=== PATIENT | male | born 1965 | race Caucasian/White ===

== ENCOUNTER 2023-05-16 10:00 | Outpatient (OUT) | payer OTHER, SELFPAY | END 2023-05-16 10:01 | disposition home or self-care (01) | LOC: PST 05-25 18:27 | PROVIDERS: PCP Internal Medicine; Visit Provider Internal Medicine Hematology & Oncology | DX: Z01.818 Encounter for other preprocedural examination (principal) ==

== ENCOUNTER 2023-05-17 11:03 | Day surgery (SDC) | payer OTHER, SELFPAY ==
--- NOTE | 2023-05-17 | OP_ITS ---
OPERATION DATE: ??05/17/2023 PREOPERATIVE DIAGNOSIS:? Enlarging painful lipoma left lower back/flank. POSTOPERATIVE DIAGNOSIS:? Enlarging painful lipoma left lower back/flank. PROCEDURE:? Excisional biopsy of enlarging lipoma of the left lower back/flank area. SURGEON:? Toro Way M.D. ANESTHESIA:? Local with 0.5% Marcaine plain. ESTIMATED BLOOD LOSS:? Less than 3 mL. INDICATIONS AND CONSENT:? Patient is a 57-year-old male with history of enlarging painful lipoma of the left lower back/flank area.? Indications, risks, benefits, alternatives of proceeding with excisional biopsy under local anesthesia were explained extensively to the patient, including risks of bleeding, infection, scarring, pain, recurrence and need for further surgery.? All his questions were answered.? Informed consent was obtained. PROCEDURE:? Patient was brought to the operating room, placed in the right lateral decubitus position.? He was prepped and draped in the usual sterile fashion.? The area was anesthetized with 0.5% Marcaine, as well as the deeper structures.? Incision was made over the long axis of the lesion, which was approximately 2 cm in greatest diameter, and carried down through subcutaneous tissue using sharp dissection.? An approximately 2 cm lipoma was identified and freed up.? It was sent off to Pathology.? The wound was irrigated.? The subcutaneous tissues were re-approximated with interrupted 3-0 Monocryl suture.? The skin was closed with a running 4-0 subcuticular Monocryl suture and skin glue.? Sterile pressure dressing was applied.? Sponge and needle counts were correct x2 per nursing personnel.? Patient tolerated procedure well, was sent back to the recovery area, then discharged to home in good condition.? He is to take ibuprofen as needed for pain.? Follow up with me in 7-10 days for wound check.? He is to call sooner with any problems or questions.? CC:? Patient?s family physician BLUE
[2023-05-17 11:51] VITALS: BP 138/79; PULSE 56; RESP 18; O2SAT 97
[2023-05-17] MEDS: BUPIVACAINE HCL 0.5% PF 50 MG/10 ML VIAL INJ (11:58)
[2023-05-17 12:08] VITALS: BP 131/66; PULSE 77; RESP 18; O2SAT 96
== END 2023-05-17 12:18 | disposition home or self-care (01) ==
PROVIDERS: PCP Internal Medicine; Visit Provider Surgery
PROC: (CPT 11402; principal; 2023-05-17 11:20)
DX: D17.1 Benign lipomatous neoplasm of skin and subcutaneous tissue of trunk (principal); M54.9 Dorsalgia, unspecified; I10 Essential (primary) hypertension; K21.9 Gastro-esophageal reflux disease without esophagitis; G47.33 Obstructive sleep apnea (adult) (pediatric); I73.9 Peripheral vascular disease, unspecified
CPT/HCPCS: 11402; 12031; 88304

== ENCOUNTER 2023-10-24 09:35 | Observation (INO) | payer OTHER, SELFPAY ==
[2023-10-24] VITALS (20 sets, daily range): BP systolic 145–173; BP diastolic 73–87; PULSE 53–74; RESP 10–20; TEMP 36.6–36.9; O2SAT 93–99; BMI 43.5; BMI 37.2
--- NOTE | 2023-10-24 09:50 | ECG_ITS ---
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
--- NOTE | 2023-10-24 09:50 | XR_ITS ---
The [address] [address] Patient Name: SAMUEL BLANCHARD MRN: [id number] date: 1965 Sex: M Assigned Patient Location: ER Current Patient Location: ER Accession/Order Number: [id number] Exam Date: 10/24/2023 09:51 Report Date: 10/24/2023 10:19 At the request of: NICOLAS ELMORE Procedure: XR chest 1V EXAM: XR chest 1V HISTORY: CP COMPARISON: Chest study dated 02/13/2019 TECHNIQUE: AP view of the chest was obtained with portable technique at 10:00 AM. FINDINGS: Heart and mediastinal contours are unremarkable in appearance. No acute infiltrate or consolidations are seen. No obvious pneumothorax. Mild degenerative changes in the dorsal spine with slight convexity to the right. XR/XR chest 1V IMPRESSION: No acute process seen in the chest. Electronically authenticated by: JERRI TAN Date: 10/24/2023 10:19
--- NOTE | 2023-10-24 09:50 | ED.CHESTPAI1 ---
HPI - Chest Pain General Chief Complaint: Chest Pain Stated Complaint: CHEST PAIN Time Seen by Provider: 10/24/23 09:43 Source: patient Mode of arrival: walk-in Limitations: no limitations History of Present Illness HPI narrative: 58-year-old male presents for chest pain. He's been having it intermittently for the past four days and it last 45-60 seconds at a time. It's been happening at work. He doesn't feel short of breath. Fatigue recently but no cough or fever or shortness of breath or injury. He states when he gets that it feels like a stick is moving across his chest. Related Data Home Medications Medication Instructions Recorded Confirmed amlodipine 10 mg tablet 10 mg PO DAILY 05/15/23 05/15/23 carvedilol 12.5 mg tablet 12.5 mg PO BID 05/15/23 05/15/23 losartan 50 mg-hydrochlorothiazide 1 tab PO DAILY 05/15/23 05/15/23 12.5 mg tablet potassium chloride 10 mEq 10 meq PO DAILY 05/15/23 05/15/23 tablet,extended release Allergies Allergy/AdvReac Type Severity Reaction Status Date / Time No Known Drug Allergies Allergy Verified 05/15/23 13:39 Review of Systems ROS Narrative A ten point review of systems is negative except as noted above. [facility] Medical History (Updated 10/24/23 @ 12:07 by Alejandro Morse MD) Inflammatory polyarthropathy ?M06.4 - Inflammatory polyarthropathy (ICD-10) Gastric hemorrhage due to chronic superficial gastritis ?K29.31 - Chronic superficial gastritis with bleeding (ICD-10) Obstructive sleep apnea ?G47.33 - Obstructive sleep apnea (adult) (pediatric) (ICD-10) Peripheral venous insufficiency ?I87.2 - Venous insufficiency (chronic) (peripheral) (ICD-10) GERD (gastroesophageal reflux disease) ?K21.9 - Gastro-esophageal reflux disease without esophagitis (ICD-10) Erosive esophagitis ?K22.10 - Ulcer of esophagus without bleeding (ICD-10) Lipoma of back ?D17.1 - Benign lipomatous neoplasm of skin and subcutaneous tissue of trunk (ICD-10) Hypertension ?I10 - Essential (primary) hypertension (ICD-10) Hypokalemia ?E87.6 - Hypokalemia (ICD-10) History of anemia ?Z86.2 - Personal history of diseases of the blood and blood-forming organs and certain disorders involving the immune mechanism (ICD-10) Surgical History (Updated 05/15/23 @ 13:54 by Swapna Ansari) History of arthroscopic knee surgery ?Z98.890 - Other specified postprocedural states (ICD-10) History of foot surgery ?Z98.890 - Other specified postprocedural states (ICD-10) Status post excision of lipoma ?Z98.890 - Other specified postprocedural states (ICD-10) ?Z86.018 - Personal history of other benign neoplasm (ICD-10) History of nasal septoplasty ?Z98.890 - Other specified postprocedural states (ICD-10) Hx of colonoscopy ?Z98.890 - Other specified postprocedural states (ICD-10) History of esophagogastroduodenoscopy ?Z98.890 - Other specified postprocedural states (ICD-10) Family History (Updated 05/15/23 @ 13:44 by Swapna Ansari) Other Asthma Family history of diabetes mellitus Family history of hypertension Social History (Updated 05/17/23 @ 11:21 by Swapna Rodriguez) Within the past year, how often did you have a drink containing alcohol: 2-4 times a month Smoking status: Never smoker Non-prescribed substance use: denies use Previous occupational history: DRAPERY INSTALLER AT [employer] Highest level of school completed/degree received: some college, no degree Exam Narrative Exam Narrative: Nurses note and vital signs reviewed and patient is not hypoxic. General: The patient appears well and in no apparent distress. Patient is resting comfortably on cart. Skin: Warm, dry, no pallor noted. There is no rash noted. Head: Normocephalic, atraumatic Eye: Normal conjunctiva, no drainage Ears, Nose, Mouth, and Throat: oral mucosa is moist. Nares patent. Cardiovascular: Regular Rate and Rhythm Respiratory: Patient is in no distress, no accessory muscle use, lungs are clear to auscultation, no wheezing, rales or rhonchi Back: non-tender GI: soft and nontender Musculoskeletal: The patient has no evidence of calf tenderness, no pitting edema, symmetrical pulses noted bilaterally Neurological: A&O, normal speech Psychiatric: Cooperative Constitutional Vital Signs, click to edit/add: Last Vital Signs Temp 97.9 F 10/24/23 09:38 Pulse 55 L 10/24/23 10:30 Resp 14 10/24/23 10:30 BP 173/84 H 10/24/23 09:40 Pulse Ox 95 10/24/23 10:30 Course Vital Signs Vital signs: Vital Signs Temperature 97.9 F 10/24/23 09:38 Pulse Rate 59 L 10/24/23 09:38 Respiratory Rate 18 10/24/23 09:38 Blood Pressure 173/84 H 10/24/23 09:38 Pulse Oximetry 99 10/24/23 09:38 Temperature 97.9 F 10/24/23 09:38 Pulse Rate 55 L 10/24/23 10:30 Respiratory Rate 14 10/24/23 10:30 Blood Pressure 173/84 H 10/24/23 09:40 Pulse Oximetry 95 10/24/23 10:30 MDM - Chest Pain MDM Narrative Medical decision making narrative: two troponins are normal, essentially unchanged. He has slight ST depression laterally. His symptoms are concerning and he'll be admitted for observation. Findings are discussed with the patient Differential Diagnosis Differential diagnosis: Likely pneumothorax, unstable angina pectoris, atypical chest pain, st elevation myocardial infarction, costochondritis and chest pain Lab Data Attestation: I reviewed the patient's lab results. Labs: Lab Results 10/24/23 10/24/23 Range/Units 09:43 10:48 WBC 6.3 (4.0-11.0) 10^3/uL RBC 4.71 (4.70-6.10) 10^6/uL Hgb 13.0 L (14.0-18.0) g/dL Hct 39.2 L (42.0-54.0) % MCV 83.2 (80.0-94.0) fL MCH 27.6 (25.9-34.0) pg MCHC 33.2 (29.9-35.2) g/dL RDW 13.2 (11.0-15.0) % Plt Count 143 L (150-450) 10^3/uL MPV 9.5 (9.5-13.5) fL Neut % (Auto) 65.3 (43.0-75.0) % Lymph % (Auto) 22.1 (20.5-60.0) % Harvey % (Auto) 7.0 (1.7-12.0) % Eos % (Auto) 4.1 (0.9-7.0) % Baso % (Auto) 0.6 (0.2-2.0) % Neut # (Auto) 4.1 (1.4-6.5) 10^3/uL Lymph # (Auto) 1.4 (1.2-3.8) 10^3/uL Harvey # (Auto) 0.4 (0.3-0.8) 10^3/uL Eos # (Auto) 0.3 (0.0-0.7) 10^3/uL Baso # (Auto) 0.0 (0.0-0.1) 10^3/uL Abs Immat Gran (auto) 0.06 H (0.00-0.03) 10^3/uL Imm/Tot Granulo (auto) 0.9 H (0.0-0.5) % Sodium 138 (136-145) mmol/L Potassium 3.6 (3.5-5.1) mmol/L Chloride 102 (98-107) mmol/L Carbon Dioxide 28.6 (21.0-32.0) mmol/L Anion Gap 11.0 BUN 12.0 (7.0-18.0) mg/dL Creatinine 0.89 (0.70-1.30) mg/dL Est GFR ( Amer) >60 (>=60) Est GFR (Non-Af Amer) >60 (>=60) BUN/Creatinine Ratio 13.5 Glucose 117 H (74-106) mg/dL Calcium 8.4 L (8.5-10.1) mg/dL Troponin I High Sens 11.2 13.1 (4.0-76.1) pg/mL Imaging Data Chest x-ray: Radiologist's impression: Procedure: XR chest 1V EXAM: XR chest 1V HISTORY: CP COMPARISON: Chest study dated 02/13/2019 TECHNIQUE: AP view of the chest was obtained with portable technique at 10:00 AM. FINDINGS: Heart and mediastinal contours are unremarkable in appearance. No acute infiltrate or consolidations are seen. No obvious pneumothorax. Mild degenerative changes in the dorsal spine with slight convexity to the right. IMPRESSION: No acute process seen in the chest. Electronically authenticated by: JERRI TAN Date: 10/24/2023 10:19 ECG Data Attestation: I personally reviewed and interpreted this ECG as follows: (EKG on my interpretation shows normal sinus rhythm with a rate of [address] depression laterally.) Heart Score History: Highly Suspicious ECG: NS Repolarization Age: >45-<65 years Risk Factors: 1 or 2 Risk Factors Troponin: <Normal Limit Total Heart Score Recommendations & Risks:: 5 Discharge Plan Discharge Chief Complaint: Chest Pain Clinical Impression: Chest pain Patient Disposition: Admitted as Observation Time of Disposition Decision: 12:07 Condition: Good Prescriptions / Home Meds: No Action amlodipine 10 mg tablet 10 mg PO DAILY carvedilol 12.5 mg tablet 12.5 mg PO BID Rx Instructions: must administer with a meal/food losartan-hydrochlorothiazide 50-12.5 mg tablet 1 tab PO DAILY potassium chloride 10 mEq tablet extended release 10 meq PO DAILY Referrals: Pascual Ordaz DO [Primary Care Provider] - 1 week
[2023-10-24 09:58] LABS: Basophils Percent Auto 0.6 % (0.2-2.0); Eosinophils Absolute Auto 0.3 10^3/uL (0.0-0.7); Eosinophils Percent Auto 4.1 % (0.9-7.0); Hematocrit 39.2 % (42.0-54.0); Immature Granulocytes Abs Auto 0.06 10^3/uL (0.00-0.03); Immature Granulocytes Pct Auto 0.9 % (0.0-0.5); Lymphocytes Absolute Auto 1.4 10^3/uL (1.2-3.8); Lymphocytes Percent Auto 22.1 % (20.5-60.0); Mean Corpuscular HGB Conc 33.2 g/dL (29.9-35.2); Mean Corpuscular Hemoglobin 27.6 pg (25.9-34.0); Mean Corpuscular Volume 83.2 fL (80.0-94.0); Mean Platelet Volume 9.5 fL (9.5-13.5); Monocytes Absolute Auto 0.4 10^3/uL (0.3-0.8); Neutrophils Absolute Auto 4.1 10^3/uL (1.4-6.5); Neutrophils Percent Auto 65.3 % (43.0-75.0); Platelet Count 143 10^3/uL (150-450); Red Blood Count 4.71 10^6/uL (4.70-6.10); Red Cell Distribution Width 13.2 % (11.0-15.0); White Blood Count 6.3 10^3/uL (4.0-11.0)
[2023-10-24] MEDS: ASPIRIN 81 MG TAB.CHEW 324 MG PO (10:10)
[2023-10-24 10:12] LABS: BUN Creatinine Ratio 13.5; Calcium 8.4 mg/dL (8.5-10.1); Carbon Dioxide 28.6 mmol/L (21.0-32.0); Chloride 102 mmol/L (98-107); Estimated GFR (African America >60 (>=60); Estimated GFR (Non-African Ame >60 (>=60); Glucose 117 mg/dL (74-106); Potassium 3.6 mmol/L (3.5-5.1); Sodium 138 mmol/L (136-145); Troponin I High Sensitivity 11.2 pg/mL (4.0-76.1)
[2023-10-24] MEDS: ASPIRIN 81 MG TAB.CHEW PO (10:21)
[2023-10-24 11:11] LABS: Troponin I High Sensitivity 13.1 pg/mL (4.0-76.1)
--- NOTE | 2023-10-24 13:00 | US_ITS ---
The [address] [address] Patient Name: SAMUEL BLANCHARD MRN: [id number] date: 1965 Sex: M Assigned Patient Location: ICU Current Patient Location: ICU Accession/Order Number: [id number] Exam Date: 10/24/2023 13:05 Report Date: 10/24/2023 13:50 At the request of: FRANC MARMOLEJO Procedure: US right upper quadrant EXAM: US right upper quadrant HISTORY: Abdominal pain COMPARISON: None TECHNIQUE: Ultrasound study of the right upper quadrant of the abdomen was performed. FINDINGS: In the gallbladder no evidence of gallstones. Gallbladder wall is borderline normal in size measuring 0.30 cm in thickness, of doubtful acute significance. No obvious pericholecystic fluid. Common bile duct measures 0.23 cm in diameter which is within normal limits. Liver appears grossly unremarkable without obvious mass or intrahepatic ductal dilatation. Limited views of the pancreas fail demonstrate obvious focal abnormality. Right kidney measures approximately 12.1 x 5.1 x 5.8 cm in longitudinal, transverse and AP dimensions. No obvious solid or cystic mass. No obvious calculus. No evidence of an acute process to suggest obstructive uropathy. Renal cortex is unremarkable measuring 1.5 cm in thickness. US/US right upper quadrant IMPRESSION: Grossly unremarkable ultrasound study of the right upper quadrant of the abdomen. Electronically authenticated by: JERRI TAN Date: 10/24/2023 13:50
--- NOTE | 2023-10-24 13:07 | CA_ITS ---
Patient Name: SAMUEL BLANCHARD MR#: [id number] : 1965 Exam Date: 10/24/2023 Ordering Doctor: DR Andrei Dumont . ECHOCARDIOGRAM REPORT PROCEDURE: CA ECHO DOPPLER COMPLETE INDICATIONS: Dyspnea, hypertension, obstructive sleep apnea COMPARISON: None. DESCRIPTION: COMPLETE ECHOCARDIOGRAM Real-time transthoracic echocardiography with 2D, M-mode, spectral and color flow Doppler performed. QUALITY: Technical quality was good. LEFT VENTRICLE: Normal chamber size. Moderate concentric left ventricular hypertrophy. LV EF: Normal left ventricular ejection fraction, (>55%). DIASTOLIC: Diastolic function is indeterminate. ATRIAL SEPTUM: LEFT ATRIUM: Normal chamber size. RIGHT ATRIUM: Normal chamber size. RIGHT VENTRICLE: Normal chamber size. Normal right ventricular systolic function. TRICUSPID VALVE: Normal mobility and thickness. No stenosis with trivial regurgitation. No evidence of pulmonary hypertension. RVSP 32 mmHg MITRAL VALVE: Normal mobility and thickness. No evidence of mitral valve stenosis. There is no mitral annular calcification. No mitral regurgitation. AORTIC VALVE: Normal trileaflet appearance. No visible sclerosis. Normal leaflet mobility. No evidence of aortic valve stenosis. No aortic regurgitation. AORTIC ROOT: Mildly to moderately dilated measuring 4.2 cm. Mildly to moderately dilated ascending aorta measuring 4.1 cm. PULMONIC VALVE: Normal thickness and mobility. No stenosis. Trivial regurgitation. PERICARDIUM: No evidence of pericardial effusion. IVC: Collapses with inspirations. IVC is dilated (2.6 cm) PLEURA: CONCLUSION: 1. Moderate concentric left ventricular hypertrophy with normal systolic function. LVEF is 55 to 60%. 2. Normal right ventricular size and systolic function. 3. No significant valvular dysfunction. 4. Normal right-sided pressures. 5. Mildly to moderately dilated aortic root [4.2 cm], and ascending aorta [4.1 cm]. Adult Echocardiography Procedure Report Left Ventricle LVEDD (3.7 - 5.6 cm): 5.43 cm LVESD (2.2 - 4.0 cm): 3.33 cm LVIVS thickness (0.6 - 1.2 cm): 1.64 cm LVPW thickness (0.5 - 1.0 cm): 1.45 cm LVOT Max Gradient: 5 mm[Hg] Peak Velocity (LVOT): 116.00 cm/s LVOT Diameter 2.90 cm Left Ventricular Ejection Fraction: 55-60 % Left Atrium LA Volume Index (2D A2C): 23932 mm3 Left Atrium Systolic Dimension: 4.90 cm Mitral Valve MV E to A Ratio: 1.20 Mitral Valve A-Wave Peak Velocity: 74.50 cm/s Mitral Valve E-Wave Peak Velocity: 85.90 cm/s Cardiovascular Orifice Area: 2.42 cm2 Right Ventricle Aorta AO Root Diam: 4.20 cm Aortic Valve AoV Area (Peak Kwadwo): 5.72 cm2 Peak Velocity(Antegrade Flow): 134.00 cm/s Peak Gradient(Antegrade Flow): 7 mm[Hg] Tricuspid Valve Peak Velocity (Regurgitant Flow): 246.00 cm/s Peak Velocity: 58.70 cm/s Pulmonic Valve Peak Velocity: 72.10 cm/s, 99.00 cm/s Peak Gradient: 3 mm[Hg] Right Atrium Dictated by: Rick Deleon M.D. on 10/25/2023 at 11:13 Approved by: Rick Deleon M.D. on 10/25/2023 at 11:18
[2023-10-24 14:13] LABS: Alanine Aminotransferase 36 U/L (16-63); Albumin Level 3.6 g/dL (3.4-5.0); Alkaline Phosphatase 66 U/L (46-116); Aspartate Amino Transferase 23 U/L (15-37); Bilirubin Direct 0.2 mg/dL (0.0-0.2); Bilirubin Total 0.6 mg/dL (0.2-1.0); Globulin 3.6 g/dL; Total Protein 7.2 g/dL (6.4-8.2)
--- NOTE | 2023-10-24 14:25 | P.HP_ITS ---
H&P: HPI History of Present Illness Chief complaint: CHEST PAIN Narrative: Patient presented to the emergency room with increasing episodes of chest tightness, left and right shoulder pain as well. Some dyspnea when he has the symptoms. Patient risk factor of obesity, patient admitted to ICU for intensive cardiac monitoring based on symptoms of increasing chest tightness possible unstable angina Review of Systems ROS Status of ROS 10 or more systems reviewed and unremark able except as noted in history and below [facility] Medical History (Updated 10/24/23 @ 12:07 by Alejandro Morse MD) Inflammatory polyarthropathy ?M06.4 - Inflammatory polyarthropathy (ICD-10) Gastric hemorrhage due to chronic superficial gastritis ?K29.31 - Chronic superficial gastritis with bleeding (ICD-10) Obstructive sleep apnea ?G47.33 - Obstructive sleep apnea (adult) (pediatric) (ICD-10) Peripheral venous insufficiency ?I87.2 - Venous insufficiency (chronic) (peripheral) (ICD-10) GERD (gastroesophageal reflux disease) ?K21.9 - Gastro-esophageal reflux disease without esophagitis (ICD-10) Erosive esophagitis ?K22.10 - Ulcer of esophagus without bleeding (ICD-10) Lipoma of back ?D17.1 - Benign lipomatous neoplasm of skin and subcutaneous tissue of trunk (ICD-10) Hypertension ?I10 - Essential (primary) hypertension (ICD-10) Hypokalemia ?E87.6 - Hypokalemia (ICD-10) History of anemia ?Z86.2 - Personal history of diseases of the blood and blood-forming organs and certain disorders involving the immune mechanism (ICD-10) Surgical History (Updated 05/15/23 @ 13:54 by Swapna Ansari) History of arthroscopic knee surgery ?Z98.890 - Other specified postprocedural states (ICD-10) History of foot surgery ?Z98.890 - Other specified postprocedural states (ICD-10) Status post excision of lipoma ?Z98.890 - Other specified postprocedural states (ICD-10) ?Z86.018 - Personal history of other benign neoplasm (ICD-10) History of nasal septoplasty ?Z98.890 - Other specified postprocedural states (ICD-10) Hx of colonoscopy ?Z98.890 - Other specified postprocedural states (ICD-10) History of esophagogastroduodenoscopy ?Z98.890 - Other specified postprocedural states (ICD-10) Family History (Updated 10/24/23 @ 13:34 by Deepthi Eddy) Other Family history of COPD (chronic obstructive pulmonary disease) Family history of cancer Family history of diabetes mellitus Family history of hypertension Family history of stroke Social History (Updated 05/17/23 @ 11:21 by Swapna Rodriguez) Within the past year, how often did you have a drink containing alcohol: 2-4 times a month Smoking status: Never smoker Non-prescribed substance use: denies use Previous occupational history: TECHNICAL HEALTHCARE CONSULTANT AT [employer] Highest level of school completed/degree received: some college, no degree Meds Home Medications and Allergies Home Medications Medication Instructions Recorded Confirmed Type amlodipine 10 mg tablet 10 mg PO DAILY 05/15/23 10/24/23 History losartan 50 mg-hydrochlorothiazide 1 tab PO DAILY 05/15/23 10/24/23 History 12.5 mg tablet potassium chloride 10 mEq 10 meq PO DAILY 05/15/23 10/24/23 History tablet,extended release aspirin 81 mg tablet,delayed 81 mg PO QD #30 tabs 10/25/23 Rx release Allergies Allergy/AdvReac Type Severity Reaction Status Date / Time No Known Drug Allergies Allergy Verified 05/15/23 13:39 Exam Constitutional Vital Signs, click to edit/add: Last Vital Signs Temp 97.5 F L 10/25/23 04:48 Pulse 59 L 10/25/23 04:48 Resp 12 10/25/23 04:48 BP 149/88 H 10/25/23 04:48 Pulse Ox 96 10/25/23 04:48 O2 Del Method Room Air 10/25/23 04:48 Documenting provider has reviewed patient's vital signs: yes Common normals: no apparent distress Chest Common normals: inspection of chest normal and palpation of chest normal Respiratory Common normals: normal respiratory effort and no retractions Cardio Common normals: regular rate, regular rhythm and no murmurs GI Common normals: Normal to inspection, nondistended, normoactive bowel sounds present Back & Pelvis Common normals: thoracic and lumbar spine normal to inspection Results Labs Labs: Short CBC 10/24/23 10/25/23 Range/Units 09:43 05:05 WBC 6.3 7.3 (4.0-11.0) 10^3/uL Hgb 13.0 L 12.8 L (14.0-18.0) g/dL Hct 39.2 L 38.9 L (42.0-54.0) % Plt Count 143 L 145 L (150-450) 10^3/uL [facility] 10/24/23 09:43 Sodium 138 Potassium 3.6 Chloride 102 Carbon Dioxide 28.6 BUN 12.0 Creatinine 0.89 Glucose 117 H Calcium 8.4 L Liver Function 10/24/23 Range/Units 13:32 Total Bilirubin 0.6 (0.2-1.0) mg/dL Direct Bilirubin 0.2 (0.0-0.2) mg/dL AST 23 (15-37) U/L ALT 36 (16-63) U/L Alkaline Phosphatase 66 (46-116) U/L Albumin 3.6 (3.4-5.0) g/dL Assessment and Plan Assessment and Plan (1) Chest pain: Plan Chest pain left-sided into the left arm, pressure type, some dyspnea-check echo, cardiac markers, monitor blood pressure closely, start baby aspirin Hypertension-continue with home medications *Patient is observation-cycle enzymes, check echo, possible discharge in a.m. if stable
[2023-10-24 16:49] LABS: Troponin I High Sensitivity 14.4 pg/mL (4.0-76.1)
[2023-10-24] MEDS: AMLODIPINE BESYLATE 5 MG TABLET 10 MG PO (16:55)
[2023-10-24] MEDS: POTASSIUM CHLORIDE 10 MEQ ER TABLET PO (16:56)
[2023-10-24] MEDS: PANTOPRAZOLE SODIUM 40 MG VIAL IV (16:57)
[2023-10-25] VITALS (52 sets, daily range): BP systolic 146–149; BP diastolic 80–88; PULSE 46–127; RESP 0–36; TEMP 36.4–36.6; O2SAT 93–96
[2023-10-25 05:16] LABS: Basophils Absolute Auto 0.1 10^3/uL (0.0-0.1); Basophils Percent Auto 0.8 % (0.2-2.0); Eosinophils Absolute Auto 0.3 10^3/uL (0.0-0.7); Eosinophils Percent Auto 3.8 % (0.9-7.0); Hematocrit 38.9 % (42.0-54.0); Hemoglobin 12.8 g/dL (14.0-18.0); Immature Granulocytes Abs Auto 0.06 10^3/uL (0.00-0.03); Immature Granulocytes Pct Auto 0.8 % (0.0-0.5); Lymphocytes Absolute Auto 1.5 10^3/uL (1.2-3.8); Lymphocytes Percent Auto 20.1 % (20.5-60.0); Mean Corpuscular HGB Conc 32.9 g/dL (29.9-35.2); Mean Corpuscular Hemoglobin 27.2 pg (25.9-34.0); Mean Corpuscular Volume 82.8 fL (80.0-94.0); Mean Platelet Volume 9.2 fL (9.5-13.5); Monocytes Absolute Auto 0.5 10^3/uL (0.3-0.8); Monocytes Percent Auto 6.7 % (1.7-12.0); Neutrophils Absolute Auto 4.9 10^3/uL (1.4-6.5); Neutrophils Percent Auto 67.8 % (43.0-75.0); Platelet Count 145 10^3/uL (150-450); Red Cell Distribution Width 13.2 % (11.0-15.0); White Blood Count 7.3 10^3/uL (4.0-11.0)
[2023-10-25 05:33] LABS: Alanine Aminotransferase 45 U/L (16-63); Albumin Globulin Ratio 0.9; Albumin Level 3.3 g/dL (3.4-5.0); Alkaline Phosphatase 60 U/L (46-116); Anion Gap 10.5; Aspartate Amino Transferase 24 U/L (15-37); BUN Creatinine Ratio 13.2; Bilirubin Total 0.7 mg/dL (0.2-1.0); Carbon Dioxide 27.2 mmol/L (21.0-32.0); Chloride 103 mmol/L (98-107); Estimated GFR (African America >60 (>=60); Estimated GFR (Non-African Ame >60 (>=60); Globulin 3.7 g/dL; Glucose 116 mg/dL (74-106); Potassium 3.7 mmol/L (3.5-5.1); Sodium 137 mmol/L (136-145)
--- NOTE | 2023-10-25 07:37 | P.DS_ITS ---
DS: Providers Provider Date of admission: 10/24/23 12:43 Primary care physician: Pascual Ordaz, DS: Diagnosis Discharge Diagnosis (1) Chest pain: Plan Chest pain- Hypertension DS: Summary Hospital Course Hospital Course: Patient mated to the ICU with concerning story for accelerating and unstable angina, patient no further episodes of chest pain while he was admitted here, cardiac markers were negative, echocardiogram preliminary report with an excellent ejection fraction, started patient on a baby aspirin, if ambulating well this morning without chest pain be discharged home in improving condition. Medications see list. Follow-up with his PCP for any further cardiac workup as deemed necessary Time Spent with Patient Time attestation: Total time spent providing and/or coordinating discharge services: Exam Constitutional Vital Signs, click to edit/add: Last Vital Signs Temp 97.5 F L 10/25/23 04:48 Pulse 46 L 10/25/23 05:59 Resp 12 10/25/23 04:48 BP 149/88 H 10/25/23 04:48 Pulse Ox 96 10/25/23 04:48 O2 Del Method Room Air 10/25/23 04:48 Documenting provider has reviewed patient's vital signs: yes Common normals: no apparent distress Chest Common normals: inspection of chest normal and palpation of chest normal Respiratory Common normals: normal respiratory effort and no retractions Cardio Common normals: regular rate, regular rhythm and no murmurs GI Common normals: Normal to inspection, nondistended, normoactive bowel sounds present Back & Pelvis Common normals: thoracic and lumbar spine normal to inspection DS: Data Data Completed and Pending Labs on day of discharge: Labs from last 24 hours 10/25/23 10/24/23 10/24/23 05:05 16:27 13:32 WBC 7.3 RBC 4.70 Hgb 12.8 L Hct 38.9 L MCV 82.8 MCH 27.2 MCHC 32.9 RDW 13.2 Plt Count 145 L MPV 9.2 L Neut % (Auto) 67.8 Lymph % (Auto) 20.1 L [place] % (Auto) 6.7 Eos % (Auto) 3.8 Baso % (Auto) 0.8 Neut # (Auto) 4.9 Lymph # (Auto) 1.5 [place] # (Auto) 0.5 Eos # (Auto) 0.3 Baso # (Auto) 0.1 Abs Immat Gran (auto) 0.06 H Imm/Tot Granulo (auto) 0.8 H Sodium 137 Potassium 3.7 Chloride 103 Carbon Dioxide 27.2 Anion Gap 10.5 BUN 12.0 Creatinine 0.91 Est GFR ( Amer) >60 Est GFR (Non-Af Amer) >60 BUN/Creatinine Ratio 13.2 Glucose 116 H Calcium 9.0 Magnesium 2.0 Total Bilirubin 0.7 0.6 Direct Bilirubin 0.2 AST 24 23 ALT 45 36 Alkaline Phosphatase 60 66 Troponin I High Sens 14.4 13.0 NT-Pro-B Natriuret Pep 30.0 Total Protein 7.0 7.2 Albumin 3.3 L 3.6 Globulin 3.7 3.6 Albumin/Globulin Ratio 0.9 1.0 10/24/23 10/24/23 10:48 09:43 WBC 6.3 RBC 4.71 Hgb 13.0 L Hct 39.2 L MCV 83.2 MCH 27.6 MCHC 33.2 RDW 13.2 Plt Count 143 L MPV 9.5 Neut % (Auto) 65.3 Lymph % (Auto) 22.1 [place] % (Auto) 7.0 Eos % (Auto) 4.1 Baso % (Auto) 0.6 Neut # (Auto) 4.1 Lymph # (Auto) 1.4 [place] # (Auto) 0.4 Eos # (Auto) 0.3 Baso # (Auto) 0.0 Abs Immat Gran (auto) 0.06 H Imm/Tot Granulo (auto) 0.9 H Sodium 138 Potassium 3.6 Chloride 102 Carbon Dioxide 28.6 Anion Gap 11.0 BUN 12.0 Creatinine 0.89 Est GFR ( Amer) >60 Est GFR (Non-Af Amer) >60 BUN/Creatinine Ratio 13.5 Glucose 117 H Calcium 8.4 L Magnesium Total Bilirubin Direct Bilirubin AST ALT Alkaline Phosphatase Troponin I High Sens 13.1 11.2 NT-Pro-B Natriuret Pep Total Protein Albumin Globulin Albumin/Globulin Ratio Discharge Plan Discharge Disposition: Home, Self-Care Condition: Good Discharge Medications: New aspirin 81 mg Tablet,Delayed Release (Dr/Ec) 81 mg PO QD Qty: 30 11RF Continued amlodipine 10 mg tablet 10 mg PO DAILY losartan-hydrochlorothiazide 50-12.5 mg tablet 1 tab PO DAILY potassium chloride 10 mEq tablet extended release 10 meq PO DAILY Activity: increase activity as tolerated Diet: advance to your usual diet Print Language: Angolan Patient Instructions: Chest Pain (DC) Forms: Portal Instructions Follow Up Appointments: One week with PCP Dr. Betty Ordaz [phone]; 11/02/2023 at 2:30 pm
--- NOTE | 2023-10-25 08:04 | CM.NOTE ---
Rounds made with Dr. Dumont pt will discharge today.
--- NOTE | 2023-10-25 08:53 | PC.NURSE ---
Patient was discharged from room 276 with no distress or s/s of chest pain at this time. Follow up appointment made with Dr. Betty Ordaz's office 11/02/2023 at 1430. Patient and this rn went over his discharge instruction. Patient had no further questions. Telemetry and IV were removed; IV catheter was intact. Patient was walked to his car in stable condition.
== END 2023-10-25 08:40 | disposition home or self-care (01) ==
LOC: ER 12:07 → ICU 12:46
PROVIDERS: Admitting Provider Family Medicine; Emergency Provider Emergency Medicine; PCP Internal Medicine; Visit Provider Family Medicine
DX: R07.9 Chest pain, unspecified (principal); I10 Essential (primary) hypertension; R06.00 Dyspnea, unspecified; M06.4 Inflammatory polyarthropathy; G47.33 Obstructive sleep apnea (adult) (pediatric); I87.2 Venous insufficiency (chronic) (peripheral); K21.9 Gastro-esophageal reflux disease without esophagitis; Z86.2 Personal history of diseases of the blood and blood-forming organs and certain disorders involving the immune mechanism; Z98.890 Other specified postprocedural states; Z79.899 Other long term (current) drug therapy
CPT/HCPCS: 36415; 71045; 76705; 80048; 80053; 80076; 83735; 83880; 84484; 85025; 93005; 93306; 94761; 96374; 99285; G0378

== ENCOUNTER 2023-12-02 08:15 | Outpatient (OUT) | payer OTHER, SELFPAY ==
--- OUTSIDE RECORDS SUMMARY | 2023-12-02 08:21 | XMS_ITS | CCD ---
Author Name Unknown Address [address] [place] [address] Organization [facility] Care Team Providers Care Attending Pathologist Name Role Phone Pascual Ordaz Primary Care Provider [phone] Alexander Robison Attending Provider Melissa Richter Unavailable LAMBERTO JOHNSON Admitting Unavailable ELIZABETH, LAMBERTO Attending Unavailable ORLIN, DR STEVENSON Primary Care Unavailable JINNY, DR ALEXANDER Muir Consulting Unavailable ELIZABETH, LAMBERTO Consulting Unavailable BALL, DR STEVENSON Admitting Unavailable BALL, DR STEVENSON Attending Unavailable BALL, DR STEVENSON Primary Care Unavailable BALL, DR STEVENSON Consulting Unavailable BALL, DR STEVENSON Admitting Unavailable BALL, DR STEVENSON Attending Unavailable BALL, DR STEVENSON Primary Care Unavailable BALL, DR STEVENSON Consulting Unavailable BALL, DR STEVENSON Admitting Unavailable BALL, DR STEVENSON Attending Unavailable BALL, DR STEVENSON Primary Care Unavailable ELIZABETH, LAMBERTO Admitting Unavailable ELIZABETH, LAMBERTO Attending Unavailable BALL, DR STEVENSON Primary Care Unavailable WEST, DR ALEXANDER Muir Consulting Unavailable ELIZABETH, LAMBERTO Consulting Unavailable BALL, DR STEVENSON Admitting Unavailable BALL, DR STEVENSON Attending Unavailable BALL, DR STEVENSON Primary Care Unavailable BALL, DR STEVENSON Consulting Unavailable BALL, DR STEVENSON Admitting Unavailable BALL, DR STEVENSON Attending Unavailable BALL, DR STEVENSON Primary Care Unavailable BALL, DR STEVENSON Admitting Unavailable BALL, DR STEVENSON Attending Unavailable BALL, DR STEVENSON Primary Care Unavailable BALL, DR STEVENSON Consulting Unavailable Orlin, Pascual Unavailable PASCUAL ORDAZ Primary Care Physician Toro DODGE Attending Unavailable NILL, Toro Kirby Attending Unavailable NILL, Toro Kirby Attending Unavailable NILL, Toro Kirby Attending Unavailable BALL, PASCUAL Referring Unavailable Unavailable Unavailable Unavailable Allergies Allergy Classification Reported Allergen(s) Allergy Type Date of Onset Reaction(s) Facility (1 source) No Known Medication Allergies; Translations: [No Known Medication Allergies] Propensity to adverse reactions (disorder) [facility] Repository Medications Current Medications Medication Drug Class(es) Dates Sig (Normalized) Sig (Original) amLODIPine 10 mg oral tablet (11 sources) Dihydropyridine Calcium Channel Avinash Start: 04-12-2019 take 1 tablet by mouth once daily amLODIPine 10 mg Tab 10 mg = 1 tab(s), Oral, Daily, Oral, Refills(s) 0 Start Date: 03/24/23 Status: Ordered amLODIPine Besyl ate Active aspirin 81 mg delayed release oral tablet (1 source) Platelet Aggregation Inhibitor, Nonsteroidal Anti-inflammatory Drug take 1 tablet by mouth every twenty-four hours Aspirin 81 MG 1 tablet Orally Once a day Active carvedilol 12.5 mg oral tablet (3 sources) alpha-Adrenergic Avinash, beta-Adrenergic Avinash Start: take 1 tablet by mouth twice daily carvedilol 12.5 mg Tab 12.5 mg = 1 tab(s), Oral, BID, Refills(s) 0 Start Date: 03/24/23 Status: Ordered Start: 04-12-2019 take 12.5 mg by mout h twice daily Carvedilol Active 12.5 MG PO Twice daily April 12, 2019 5:37am Carvedilol Activ e dexamethasone 1 mg/ml / tobramycin 3 mg/ml ophthalmic suspension (1 source) Aminoglycoside Antibacterial, Corticosteroid Start: 07-03-2022 take 1 drop(s) into the eye(s) every six hours Tobramycin-Dexamethasone 0.3-0.1 % 1 drop into affected eye Ophthalmic every 6 hrs for 5 day(s) Jun, Active diclofenac sodium 75 mg delayed release oral tablet (1 source) Nonsteroidal Anti-inflammator y Drug Start: 04-12-2019 take 75 mg by mouth once daily Diclofenac Sodium Active 75 MG PO Daily April 12, 2019 5:37am glucosamine sulfate 750 mg oral tablet (1 source) Start: 11-13-2020 take 1 tablet by mouth once daily Glucosamine Sulfate (Tena) 750 mg Tablet Active 750 MG PO Daily November 13, 2020 1:42pm hydroCHLOROthiazide 12.5 mg / losartan potassium 50 mg oral tablet (11 sources) Thiazide Diuretic, Angiotensin 2 Receptor Avinash Start: 04-12-2019 take 1 tablet by mouth once daily hydrochlorothiazide-losart an 12.5 mg-50 mg Tab 1 tab(s), Oral, Daily, Refill(s) 0, Oral Start Date: 03/24/23 Status: Ordered methylPREDNISolone 4 mg oral tablet (1 source) Corticosteroid Start: 07-03-2022 methylPREDNISolone 4 MG as directed Orally Once a day for 6 days Jun, Active Multivitamin preparation (1 source) Start: 11-13-2020 take 1 tablet by mouth once daily Multivitamin Active 1 TAB PO Daily November 13, 2020 1:41pm Completed/Discontinued Medications Medication Drug Class(es) Dates Sig (Normalized) Sig (Original) potassium chloride 10 meq extended release oral capsule (9 sources) Start: 03-24-2023 take 1 capsule by mouth once daily potassium chloride 10 mEq Cap-ER 10 mEq = 1 cap(s), Oral, Daily, Oral, Refills(s) 0 Start Date: 03/24/23 Status: Ordered take 1 tablet by mouth once ivanna y Potassium Chloride ER 10 MEQ TAKE 1 TABLET BY MOUTH DAILY Active take 1 capsule by id ut every twenty-four hours Potassium Chloride 10 MEQ 1 capsule with food Orally Once a day Active Problems Active Problems Problem Classification Problem Date Documented Date Episodic/Chronic Abdominal pain (3 sources) Right lower quadrant pain; Translations: [Right lower quadrant pain] Episodic Acquired foot deformities (8 sources) Acquired hallux rigidus; Translations: [Hallux rigidus, right foot] Chronic Anxiety disorders (2 sources) Generalized anxiety disorder; Translations: [Generalized anxiety disorder] Chronic Aortic; peripheral; and visceral artery aneurysms (2 sources) Ascending aorta dilatation; Translations: [Thoracic aortic ectasia] Chronic Deficiency and other anemia (3 sources) Anemia due to chronic blood loss; Translations: [Iron deficiency anemia secondary to blood loss (chronic)] Chronic Deficiency and other anemia (4 sources) Anemia; Translations: [Anemia, unspecified] 03-24-2023 Episodic Diabetes mellitus without complication (15 sources) Impaired fasting glucose; Translations: [Impaired fasting glycemia] Onset: 01-14-2022 Episodic Esophageal disorders (16 sources) Erosive esophagitis; Translations: [Ulcer of esophagus without bleeding] 03-24-2023 Chronic Essential hypertension (13 sources) Essential hypertension; Translations: [Essential (primary) hypertension] Chronic Fluid and electrolyte disorders (5 sources) Hypokalemia; Translations: [Hypokalemia] 03-24-2023 Episodic Gastritis and duodenitis (9 sources) Gastric hemorrhage due to chronic superficial gastritis; Translations: [Chronic superficial gastritis with bleeding] 03-24-2023 Chronic Genitourinary symptoms and ill-defined conditions (1 source) Nocturia Episodic Hyperplasia of prostate (17 sources) Nocturia due to benign prostatic hypertrophy; Translations: [Benign prostatic hyperplasia with lower urinary tract symptoms] Chronic Malaise and fatigue (7 sources) Other fatigue; Translations: [Fatigue] Onset: 05-20-2022 Episodic Osteoarthritis (20 sources) Post-traumatic osteoarthritis, right ankle and foot; Translations: [Bilateral arthritis of knees] Onset: 07-12-2022 Chronic Other and unspecified benign neoplasm (1 source) Lipoma of skin and subcutaneous tissue of trunk; Translations: [Benign lipomatous neoplasm of skin and subcutaneous tissue of trunk] Onset: 04-05-2023 Episodic Other and unspecified benign neoplasm (1 source) Lipoma of back 04-05-2023 Episodic Other circulatory disease (4 sources) Elevated blood pressure; Translations: [Elevated blood pressure] Episodic Other connective tissue disease (6 sources) Pain in limb; Translations: [Pain in right foot] Episodic Other connective tissue disease (3 sources) Mass of soft tissue; Translations: [Other specified soft tissue disorders] Episodic Other diseases of veins and lymphatics (13 sources) Peripheral venous insufficiency; Translations: [Venous insufficiency (chronic) (peripheral)] 03-24-2023 Episodic Other diseases of veins and lymphatics (3 sources) Venous insufficiency (chronic) (peripheral) Episodic Other disorders of stomach and duodenum (4 sources) Indigestion; Translations: [Functional dyspepsia] Episodic Other injuries and conditions due to external causes (3 sources) Abrasion procedure; Translations: [Other injury of unspecified body region, initial encounter] Episodic Other nutritional; endocrine; and metabolic disorders (8 sources) Simple obesity ; Translations: [Other obesity due to excess calories] Chronic Other nutritional; endocrine; and metabolic disorders (9 sources) Obesity; Translations: [Obesity, unspecified] 03-24-2023 Chronic Other nutritional; endocrine; and metabolic disorders (1 source) Other obesity due to excess calories Chronic Other nutritional; endocrine; and metabolic disorders (6 sources) Body mass index 30+ - obesity; Translations: [Body mass index (BMI) 38.0-38.9, adult] 04-05-2023 Chronic Other nutritional; endocrine; and metabolic disorders (5 sources) Severe obesity; Translations: [Morbid (severe) obesity due to excess calories] Chronic Other nutritional; endocrine; and metabolic disorders (2 sources) Morbid (severe) obesity due to excess calories Chronic Other nutritional; endocrine; and metabolic disorders (2 sources) Body mass index (BMI) 38.0-38.9, adult Chronic Other screening for suspected conditions (not mental disorders or infectious disease) (1 source) Encounter for screening for malignant neoplasm of prostate; Translations: [ENC SCREEN MALIG NEOPLASM PROSTATE] Onset: 11-30-2022 Episodic Other upper respiratory infections (4 sources) Streptococcal sore throat; Translations: [Strep pharyngitis] Episodic Otitis media and related conditions (1 source) Unspecified Eustachian tube disorder, right ear Episodic Residual codes; unclassified (8 sources) Obstructive sleep apnea (adult) (pediatric); Translations: [OBSTRUCTIVE SLEEP APNEA] Onset: 12-26-2022 Chronic Residual codes; unclassified (13 sources) Obstructive sleep apnea syndrome; Translations: [Obstructive sleep apnea (adult) (pediatric)] 03-24-2023 Chronic Residual codes; unclassified (1 source) Pain, unspecified Episodic Rheumatoid arthritis and related disease (4 sources) Inflammatory polyarthropathy; Translations: [Inflammatory polyarthropathy] 03-24-2023 Chronic Unclassified (1 source) Patient encounter status; Translations: [Encounter for colorectal cancer screening] Past or Other Problems Problem Classification Problem Date Documented Da te Episodic/Chronic Allergic reactions (1 source) Allergic contact dermatitis due to plants, except food Onset: 07-03-2022 Resolved: 07-03-2022 Episodic Deficiency and other anemia (1 source) Anemia, unspecified; Translations: [ANEMIA UNSPECIFIED] Onset: 01-17-2022 Episodic Esophageal disorders (9 sources) Esophageal disorders; Translations: [Gastroesophageal reflux disease with esophagitis without hemorrhage] Inflammation; infection of eye (except that caused by tuberculosis or sexually transmitteddisease) (1 source) Unspecified acute conjunctivitis, bilateral Onset: 07-03-2022 Resolved: 07-03-2022 Episodic Other connective tissue disease (4 sources) Pain in right foot; Translations: [PAIN IN RIGHT FOOT] Onset: 01-11-2022 Episodic Results Test Name Value Interpretation Reference Range Facility Ambulatory Visit Summaryon 0 05-30-2023 Ambulatory Visit Summary SAMUEL BLANCHARD :1965 Visit Date:05/30/2023 Ambulatory Visit Instructions Your Diagnosis Lipoma of back Your Care Team Attending Physician - ECHO CHAPA, Toro Kirby Primary Care Physician - PASCUAL ORDAZ DO This Is Your Medications List Contact prescribing physician if questions or concerns amlodipine (amLODIPine 10 mg Tab) carvedilol (carvedilol 12.5 mg Tab) hydrochlorothiazide-losartan (hydrochlorothiazide-losartan 12.5 mg-50 mg Tab) potassium chloride (potassium chloride 10 mEq Cap-ER) Procedures Performed EGD - Esophagogastroduodenoscopy (11/16/2020), Colonoscopy (04/2019), Nasal septoplasty (2014), Arthroscopy of knee, Excision of lipoma, Fusion of metatarsophalangeal joint. Medications What How Much When Instructions Unchanged amlodipine (amLODIPine 10 mg Tab) 1 Tablets By Mouth Every day Oral Contact prescribing physician if questions or concerns Unchanged carvedilol (carvedilol 12.5 mg Tab) 1 Tablets By Mouth 2 times a day Contact prescribing physician if questions or concerns Unchanged hydrochlorothiazide-losartan (hydrochlorothiazide-losartan 12.5 mg-50 mg Tab) 1 Tablets By Mouth Every day Oral Contact prescribing physician if questions or concerns Unchanged potassium chloride (potassium chloride 10 mEq Cap-ER) 1 Capsules By Mouth Every day Oral Contact prescribing physician if questions or concerns Allergies No Known Allergies No Known Medication Allergies Problems Ongoing - Any problem that you are currently receiving treatment for. Anemia BMI 38.0-38.9,adult Erosive esophagitis Essential hypertension Gastric hemorrhage due to chronic superficial gastritis GERD (gastroesophageal reflux disease) Hypokalemia Inflammatory polyarthropathy Lipoma of back Obesity Obstructive sleep apnea syndrome Peripheral venous insufficiency Normal [facility] General Surgery Office/Clini c Noteon 05-30-2023 General Surgery Office/Clinic Note Chief Complaint follow up lipoma excision HPI Staff 13 day post operative follow up post excisional biopsy left lower back lipoma. Denies pain, no use of pain medication. Denies bleeding or drainage. History of Present Illness 13 days s/p excisional biopsy left lower back/flank lipoma; pathology consistent with angiolipoma; doing well, no pain or drainage. Review of Systems ROS - Provider Constitutional: no fever, no sweats, no weight loss. Eyes: no glasses, no blurred vision, no visual loss. ENMT: no dentures, no hoarseness, no swallowing difficulties, no hearing loss, no ear infection(s), no nose bleeds. Cardiovascular: normal blood pressure, no chest pain, regular heartbeat, no heart murmur. Respiratory: no shortness of breath, no cough, no asthma, no wheezing. Gastrointestinal: no nausea, no vomiting, no diarrhea, no constipation, no blood in stool, no change in bowel habits, no abdominal pain, no hepatitis. Genitourinary: no kidney stones, no urine infection, no dysuria. Musculoskeletal: no pain, no weakness. Skin: no changing moles, no rash, no skin lumps. Neurologic: no seizures, no epilepsy, no headache. Psychiatric: no emotional or psychiatric problem. Heme/Lymph: no bleeding problems, no anemia, no blood clots, no transfusions. Allergy/Immunologic: no swollen lymph nodes/glands, no IV drug abuse. Other: Additional ROS info: Except as noted in the above Review of Systems and in the History of Present Illness, all other systems have been reviewed and are negative or noncontributory. Physical Exam skin: incision without erythema or drainage, no ecchymoses. Assessment/Plan 1. Lipoma of back (D17.1: Benign lipomatous neoplasm of skin and subcutaneous tissue of trunk) doing well; call with problems/questions. Follow-up No qualifying data available Problem List/Past Medical History Ongoing Anemia BMI 38.0-38.9,adult Erosive esophagitis Essential hypertension Gastric hemorrhage due to chronic superficial gastritis GERD (gastroesophageal reflux disease) Hypokalemia Inflammatory polyarthropathy Lipoma of back Obesity Obstructive sleep apnea syndrome Peripheral venous insufficiency Historical No qualifying data Procedure/Surgical History EGD - Esophagogastroduodenoscopy (11/16/2020), Colonoscopy (04/2019), Nasal septoplasty (2014), Arthroscopy of knee, Excision of lipoma, Fusion of metatarsophalangeal joint. Medications amLODIPine 10 mg Tab, 10 mg= 1 tab(s), Oral, Daily carvedilol 12.5 mg Tab, 12.5 mg= 1 tab(s), Oral, BID hydrochlorothiazide-losartan 12.5 mg-50 mg Tab, 1 tab(s), Oral, Daily potassium chloride 10 mEq Cap-ER, 10 mEq= 1 cap(s), Oral, Daily Allergies No Known Allergies No Known Medication Allergies Social History Alcohol - Denies Alcohol Use, 04/05/2023 Substance Abuse - Denies Substance Abuse, 04/05/2023 Tobacco Never (less than 100 in lifetime) Tobacco Use:. Never Smokeless Tobacco Use:., 04/05/2023 Family History Asthma: Sister. Diabetes mellitus type 2: Father. Hypertension: Mother, Sister and Brother. Immunizations Vaccine Date Status SARS-CoV-2 (COVID-19) mRNA BNT-162b2 vax 03/22/2021 Recorded SARS-CoV-2 (COVID-19) mRNA BNT-162b2 vax 03/01/2021 Recorded Normal [facility] Comment on above: Result Comment: Elec tronically Signed By: ECHO CHAPA, Toro Angel\Date and Time Signed: 05/30/23 15:44 EDT Pathology Noteon 05-29-2023 Pathology Note [id number]:127 [facility] Operative Reporton 3 Operative Report [id number]#1.00CD:127 [facility] Operative Reporton 3 Operative Report [id number]#1.00CD:127 [facility] Pre-Certification Formon Pre-Certification Form [id number]#1.00CD:127 [facility] Consent for Procedure/Surger yon 04-07-2023 Consent for Procedure/Surgery [id number]#1.00CD:127 [facility] Facesheeton 04-06-2023 Facesheet [id number]#1.00CD:127 [facility] Ambulatory Visit Summaryon 0 04-05-2023 Ambulatory Visit Summary SAMUEL BLANCHARD :1965 Visit Date:04/05/2023 Ambulatory Visit Instructions Your Care Team Attending Physician - ECHO CHAPA, Toro Kirby Primary Care Physician - PASCUAL ORDAZ DO This Is Your Medications List Contact prescribing physician if questions or concerns amlodipine (amLODIPine 10 mg Tab) carvedilol (carvedilol 12.5 mg Tab) hydrochlorothiazide-losartan (hydrochlorothiazide-losartan 12.5 mg-50 mg Tab) potassium chloride (potassium chloride 10 mEq Cap-ER) Procedures Performed EGD - Esophagogastroduodenoscopy (11/16/2020), Colonoscopy (04/2019), Nasal septoplasty (2014), Arthroscopy of knee, Excision of lipoma, Fusion of metatarsophalangeal joint. Discharge Vitals Heart Rate (Peripheral) 68 Respiratory Rate 16 Blood Pressure 142/82 Height 176.5 cm Height 69 in Weight 119.9 kg Weight 263.78 lb BMI 38.49 Medications What How Much When Instructions Unchanged amlodipine (amLODIPine 10 mg Tab) 1 Tablets By Mouth Every day Oral Contact prescribing physician if questions or concerns Unchanged carvedilol (carvedilol 12.5 mg Tab) 1 Tablets By Mouth 2 times a day Contact prescribing physician if questions or concerns Unchanged hydrochlorothiazide-losartan (hydrochlorothiazide-losartan 12.5 mg-50 mg Tab) 1 Tablets By Mouth Every day Oral Contact prescribing physician if questions or concerns Unchanged potassium chloride (potassium chloride 10 mEq Cap-ER) 1 Capsules By Mouth Every day Oral Contact prescribing physician if questions or concerns Allergies No Known Allergies No Known Medication Allergies Problems Ongoing - Any problem that you are currently receiving treatment for. Anemia BMI 38.0-38.9,adult Erosive esophagitis Essential hypertension Gastric hemorrhage due to chronic superficial gastritis GERD (gastroesophageal reflux disease) Hypokalemia Inflammatory polyarthropathy Obesity Obstructive sleep apnea syndrome Peripheral venous insufficiency Normal [facility] Physician Referralon 023 Physician Referral [id number]:127 Normal [facility] CBC AUTO DIFFon 11-26-2022 BASO # 0.0 103/ul Normal 0.0-0.1 [facility] Comment on above: Performed By: #### C BC ####[facility] [address] [place] [id number]. Arslan Ma Basophils/100 WBC (Bld) 0.6 % Normal 0.2-2.0 [facility] Comment on above: Performed By: #### C BC ####[facility] [address] [place], [place] [address]Dr. Arslan Ma EO # 0.3 103/ul Normal 0.0-0.7 [facility] Comment on above: Performed By: #### C BC ####[facility] [address] [place], [place] [address]Dr. Arslan Ma Eosinophils/100 WBC (Bld) 4.4 % Normal 0.9-7.0 [facility] Comment on above: Performed By: #### C BC ####[facility] [address] [place], [place] [address]Dr. Arslan Ma Erythrocyte distribution width (RBC) [Ratio] 13.2 % Normal 11.0-15.0 [facility] Comment on above: Performed By: #### C BC ####[facility] [address] [place], [place] [address]Dr. Arslan Ma Hematocrit (Bld) [Volume fraction] 38.3 % Critically low 42.0-54.0 [facility] Comment on above: Performed By: #### C BC ####[facility] [address] [place], [place] [address]Dr. Arslan Ma Hemoglobin (Bld) [Mass/Vol] 13.9 g/dL Critically low 14.0-18.0 [facility] Comment on above: Performed By: #### C BC ####[facility] [address] [place], [place] [address]Dr. Arslan Ma IG # 0.03 10e3/ul Normal 0.00-0.03 [facility] Comment on above: Performed By: #### C BC ####[facility] [address] [place], [place] [address]Dr. Arslan Ma IG % 0.5 % Normal 0.0-0.5 [facility] Comment on above: Performed By: #### C BC ####[facility] [address] [place] [id number]. Arslan Ma LYMPH # 1.2 103/ul Normal 1.2-3.8 [facility] Comment on above: Performed By: #### C BC ####[facility] [address] [place] [id number]. Arslan Ma Lymphocytes/100 WBC (Bld) 17.6 % Critically low 20.5-60.0 [facility] Comment on above: Performed By: #### C BC ####[facility] [address] [place] [address]Dr. Arslan Ma MANUAL DIFF REQ NO Normal [facility] Comment on above: Performed By: #### C BC ####[facility] [address] [place] [address]Dr. Arslan Ma MCH (RBC) [Entitic mass] 27.3 pg Normal 25.9-34.0 [facility] Comment on above: Performed By: #### C BC ####[facility] [address] [place] [id number]. Arslan Ma MCHC (RBC) [Mass/Vol] 36.3 g/dL Critically high 29.9-35.2 [facility] Comment on above: Performed By: #### C BC ####[facility] [address] [place] [id number]. Arslan Ma MCV (RBC) [Entitic vol] 75.2 fL Critically low 80.0-94.0 [facility] Comment on above: Performed By: #### C BC ####[facility] [address] [place] [id number]. Arslan Ma MONO # 0.5 103/ul Normal 0.3-0.8 [facility] Comment on above: Performed By: #### C BC ####[facility] [address] [place] [id number]. Arslan Ma Monocytes/100 WBC (Bld) 7.7 % Normal 1.7-12.0 [facility] Comment on above: Performed By: #### C BC ####[facility] [address] [place] [id number] Allisonzahra Ma NEUT # 4.6 103/ul Normal 1.4-6.5 [facility] Comment on above: Performed By: #### C BC ####[facility] [address] [place], [place] [address]SbThom Ma Neutrophils/100 WBC (Bld) 69.2 % Normal 43.0-75.0 [facility] Comment on above: Performed By: #### C BC ####[facility] [address] [place] [id number]. Arslan Ma Platelet mean volume (Bld) [Entitic vol] 9.3 fL Critically low 9.5-13.5 [facility] Comment on above: Performed By: #### C BC ####[facility] [address] [place] [id number] Ma PLT 174 103/ul Normal 150-450 [facility] Comment on above: Performed By: #### C BC ####[facility] [address] [place] [id number] Ma RBC 5.09 106/ul Normal 4.70-6.10 [facility] Comment on above: Performed By: #### C BC ####[facility] [address] [id number] Ma WBC 6.7 103/ul Normal 4.0-11.0 [facility] Comment on above: Performed By: #### C BC ####[facility] [address] [id number]. Arslan Ma GLYCOHEMOGLOBIN A1Con 2022 ADA RECOMMENDATION SEE BELOW Normal [facility] Comment on above: Result Comment: ADA RECOMMENDED LIMIT 4.0 - 6.0 ADA THERAPEUTIC TARGET < 7.0 ACTION SUGGESTED > 7.0 Performed By: #### A 1C #### [facility] [id number] Arslan Ma Glucose [Mass/Vol] 128 mg/dL Normal [facility] Comment on above: Performed By: #### A 1C #### [facility] [address] [address] [address] Arslan Ma HbA1c (Bld) [Mass fraction] 6.1 % Normal 4.5-6.2 [facility] Comment on above: Performed By: #### A 1C #### [facility] [address] [address] [address] Arslan Ma LIPID PROFILEon 11-26-2022 CHOL-HDL RATIO NORM SEE BELOW Normal [facility] Comment on above: Result Comment: 3.3 - 4.4 LOW RISK 4.4 - 7.1 AVERAGE RISK 7.1 - 11.0 MODERATE RISK >11.0 HIGH RISK Performed By: #### C MP, LIPID #### [facility] [address] [place] [address] Dr. Arslan Ma Cholesterol [Mass/Vol] 143 mg/dL Normal <=200 [facility] Comment on above: Performed By: #### C MP, LIPID #### [facility] [address] [place] [address] Dr. Arslan Ma Cholesterol in HDL [Mass/Vol] 43 mg/dL Normal 40-60 [facility] Comment on above: Performed By: #### C MP, LIPID #### [facility] [address] [address] [address] Arslan Ma Cholesterol in LDL [Mass/Vol] 78.4 mg/dL Normal [facility] Comment on above: Performed By: #### C MP, LIPID #### [facility] [address] [place] [address] Dr. Arslan Ma Cholesterol.total/ Cholesterol in HDL [Mass ratio] 3.3 {ratio} Normal [facility] Comment on above: Performed By: #### C MP, LIPID #### [facility] [address] [place] [address] Dr. Arslan Ma HDL NORMAL > or = 60 mg/dl - LO W CARDIOVASCULAR RISK <40 mg/dl - HIGH CARDIOVASCULAR RISK Normal [facility] Comment on above: Performed By: #### C MP, LIPID #### [facility] [address] [address] [address] Arslan Ma LDL CALC NORMAL SEE BELOW Normal [facility] Comment on above: Result Comment: <100 mg/dl OPTIMAL 100 - 129 mg/dl NEAR OR ABOVE OPTIMAL 130 - 159 mg/dl BORDERLINE HIGH 160 - 189 mg/dl HIGH >190 mg/dl VERY HIGH Performed By: #### C MP, LIPID #### [facility] [address] [address] [address] Arslan Ma Triglyceride [Mass/Vol] 108 mg/dL Normal <=150 [facility] Comment on above: Performed By: #### C MP, LIPID #### [facility] [address] [address] [address] Arslan Ma VLDL CALC 21.6 mg/dL Normal [facility] Comment on above: Performed By: #### C MP, LIPID #### [facility] [address] [place] [address] Dr. Arslan Ma PROF 14(COMP METB)on 023 Albumin [Mass/Vol] 3.8 g/dL Normal 3.4-5.0 [facility] Comment on above: Performed By: #### C MP, LIPID #### [facility] [address] [place] [address] Dr. Arslan Ma Albumin/Globulin [Mass ratio] 1.1 {ratio} Normal [facility] Comment on above: Performed By: #### C MP, LIPID #### [facility] [address] [place] [address] Dr. Arslan aM ALP [Catalytic activity/Vol] 72 U/L Normal 46-116 [facility] Comment on above: Performed By: #### C MP, LIPID #### [facility] [address] [address] [address] Arslan Ma ALT [Catalytic activity/Vol] 31 U/L Normal 16-63 [facility] Comment on above: Performed By: #### C MP, LIPID #### [facility] [address] [place] [address] Dr. Arslan Ma Anion gap [Moles/Vol] 14.9 mmol/L Normal [facility] Comment on above: Performed By: #### C MP, LIPID #### [facility] [address] [address] [address] Arslan Ma AST [Catalytic activity/Vol] 21 U/L Normal 15-37 [facility] Comment on above: Performed By: #### C MP, LIPID #### [facility] [address] [address] [address] Arslan Ma Bilirubin [Mass/Vol] 0.9 mg/dL Normal 0.2-1.0 [facility] Comment on above: Performed By: #### C MP, LIPID #### [facility] [address] [address] [address] Arslan Ma Calcium [Mass/Vol] 8.4 mg/dL Critically low 8.5-10.[address] [facility] Comment on above: Performed By: #### C MP, LIPID #### [facility] [address] [place] [address] Dr. Arslan Ma Chloride [Moles/Vol] 102 mmol/L Normal 98-107 [facility] Comment on above: Performed By: #### C MP, LIPID #### [facility] [address] [address] [address] Arslan Ma CO2 [Moles/Vol] 28.7 mmol/L Normal 21.0-32.0 [facility] Comment on above: Performed By: #### C MP, LIPID #### [facility] [address] [place] [address] Dr. Arslan Ma Creatinine [Mass/Vol] 0.86 mg/dL Normal 0.70-1.30 [facility] Comment on above: Performed By: #### C MP, LIPID #### [facility] [address] [place] [address] Dr. Arslan Ma EGFR-AF SURINAMESE >60 Normal >=60 [facility] Comment on above: Performed By: #### C MP, LIPID #### [facility] [address] [place] [address] Dr. Arslan Ma EGFR-NON AF SURINAMESE >60 Normal >=60 [facility] Comment on above: Performed By: #### C MP, LIPID #### [facility] [address] [address] [address] Arslan Ma Globulin (S) [Mass/Vol] 3.5 g/dL Normal [facility] Comment on above: Performed By: #### C MP, LIPID #### [facility] [address] [address] [address] Arslan Ma Glucose [Mass/Vol] 127 mg/dL Critically high 74-106 T [facility] Comment on above: Performed By: #### C MP, LIPID #### [facility] [address] [address] [address] Arslan Ma Potassium [Moles/Vol] 3.6 mmol/L Normal 3.5-5.1 [facility] Comment on above: Performed By: #### C MP, LIPID #### [facility] [address] [place] [address] Dr. Arslan Ma Protein [Mass/Vol] 7.3 g/dL Normal 6.4-8.2 [facility] Comment on above: Performed By: #### C MP, LIPID #### [facility] [address] [place] [address] Dr. Arslan Ma Sodium [Moles/Vol] 142 mmol/L Normal 136-145 [facility] Comment on above: Performed By: #### C MP, LIPID #### [facility] [address] [address] [address] Arslan Ma Urea nitrogen [Mass/Vol] 13.0 mg/dL Normal 7.0-18.0 [facility] Comment on above: Performed By: #### C MP, LIPID #### [facility] [address] [place] [address] Dr. Arslan Ma Urea nitrogen/Creatinin e [Mass ratio] 15.1 mg/mg Normal [facility] Comment on above: Performed By: #### C MP, LIPID #### [facility] [address] [place] [address] Dr. Arslan Ma CBC AUTO DIFFon 05-20-2022 BASO # 0.1 103/ul Normal 0.0-0.1 [facility] Comment on above: Performed By: #### C BC #### [facility] [address] [address] [address] Arslan Ma Basophils/100 WBC (Bld) 0.8 % Normal 0.2-2.0 [facility] Comment on above: Performed By: #### C BC #### [facility] [address] [place] [address] Dr. Arslan Ma EO # 0.4 103/ul Normal 0.0-0.7 [facility] Comment on above: Performed By: #### C BC #### [facility] [address] [place] [address] Dr. Arslan Ma Eosinophils/100 WBC (Bld) 5.8 % Normal 0.9-7.0 [facility] Comment on above: Performed By: #### C BC #### [facility] [address] [place] [address] Dr. Arslan Ma Erythrocyte distribution width (RBC) [Ratio] 13.3 % Normal 11.0-15.0 [facility] Comment on above: Performed By: #### C BC #### [facility] [address] [place] [address] Dr. Arslan Ma Hematocrit (Bld) [Volume fraction] 36.2 % Critically low 42.0-54.0 [facility] Comment on above: Performed By: #### C BC #### [facility] [address] [place] [address] Dr. Arslan Ma Hemoglobin (Bld) [Mass/Vol] 12.1 g/dL Critically low 14.0-18.0 [facility] Comment on above: Performed By: #### C BC #### [facility] [address] [place] [address] Dr. Arslan Ma IG # 0.04 10e3/ul Critically high 0.00-0.03 [facility] Comment on above: Performed By: #### C BC #### [facility] [address] [place] [address] Dr. Arslan Ma IG % 0.6 % Critically high 0.0-0.5 [facility] Comment on above: Performed By: #### C BC #### [facility] [address] [place] [address] Dr. Arslan Ma LYMPH # 1.3 103/ul Normal 1.2-3.8 [facility] Comment on above: Performed By: #### C BC #### [facility] [address] [place] [address] Dr. Arslan Ma Lymphocytes/100 WBC (Bld) 20.3 % Critically low 20.5-60.0 [facility] Comment on above: Performed By: #### C BC #### [facility] [address] [place] [address] Dr. Arslan Ma MANUAL DIFF REQ NO Normal [facility] Comment on above: Performed By: #### C BC #### [facility] [address] [place] [address] Dr. Arslan Ma MCH (RBC) [Entitic mass] 28.1 pg Normal 25.9-34.0 [facility] Comment on above: Performed By: #### C BC #### [facility] [address] [place] [address] Dr. Arslan Ma MCHC (RBC) [Mass/Vol] 33.4 g/dL Normal 29.9-35.2 [facility] Comment on above: Performed By: #### C BC #### [facility] [address] [place] [address] Dr. Arslan Ma MCV (RBC) [Entitic vol] 84.2 fL Normal 80.0-94.0 [facility] Comment on above: Performed By: #### C BC #### [facility] [address] [place] [address] Dr. Arslan Ma MONO # 0.6 103/ul Normal 0.3-0.8 [facility] Comment on above: Performed By: #### C BC #### [facility] [address] [place] [address] Dr. Arslan Ma Monocytes/100 WBC (Bld) 8.9 % Normal 1.7-12.0 [facility] Comment on above: Performed By: #### C BC #### [facility] [address] [address] [address] Arslan Ma NEUT # 4.2 103/ul Normal 1.4-6.5 [facility] Comment on above: Performed By: #### C BC #### [facility] [address] [address] [address] Arslan Ma Neutrophils/100 WBC (Bld) 63.6 % Normal 43.0-75.0 [facility] Comment on above: Performed By: #### C BC #### [facility] [address] [address] [address] Arslan Ma Platelet mean volume (Bld) [Entitic vol] 9.3 fL Critically low 9.5-13.5 [facility] Comment on above: Performed By: #### C BC #### [facility] [address] [address] [address] Arslan Ma PLT 154 103/ul Normal 150-450 [facility] Comment on above: Performed By: #### C BC #### [facility] [address] [address] [address] Arslan Ma RBC 4.30 106/ul Critically low 4.70-6.10 [facility] Comment on above: Performed By: #### C BC #### [facility] [address] [address] [address] Arslan Ma WBC 6.6 103/ul Normal 4.0-11.0 [facility] Comment on above: Performed By: #### C BC #### [facility] [address] [address] [address] Arslan Ma PROF CHEM 8 (BAS METB)on Anion gap [Moles/Vol] 10.3 mmol/L Normal [facility] Comment on above: Performed By: #### B MP, TSH, ALT ####[facility] [address] [place], [place] [address]SqDr. Arslan Ma Calcium [Mass/Vol] 8.3 mg/dL Critically low 8.5-10.[address] [facility] Comment on above: Performed By: #### B MP, TSH, ALT ####[facility] [address] [address]. Arslan Ma Chloride [Moles/Vol] 103 mmol/L Normal 98-107 [facility] Comment on above: Performed By: #### B MP, TSH, ALT ####[facility] [address] [address]Dr. Arslan Ma CO2 [Moles/Vol] 28.0 mmol/L Normal 21.0-32.0 [facility] Comment on above: Performed By: #### B MP, TSH, ALT ####[facility] [address] [place], [place] [address]Dr. Arslan Ma Creatinine [Mass/Vol] 1.05 mg/dL Normal 0.70-1.30 [facility] Comment on above: Performed By: #### B MP, TSH, ALT ####[facility] [address] [place], [place] [address]Dr. Arslan Ma EGFR-AF SURINAMESE >60 Normal >=60 [facility] Comment on above: Performed By: #### B MP, TSH, ALT ####[facility] [address] [place], [place] [address]Dr. Arslan Ma EGFR-NON AF SURINAMESE >60 Normal >=60 [facility] Comment on above: Performed By: #### B MP, TSH, ALT ####[facility] [address] [address]. Arslan Anil Glucose [Mass/Vol] 110 mg/dL Critically high 74-106 T [facility] Comment on above: Performed By: #### B MP, TSH, ALT ####[facility] [address] [address]. Estefanyzahra Ma Potassium [Moles/Vol] 3.3 mmol/L Critically low 3.5-5.1 [facility] Comment on above: Performed By: #### B MP, TSH, ALT ####[facility] [address] [place], [place] [address]Dr. Estefanyzahra Anil Sodium [Moles/Vol] 138 mmol/L Normal 136-145 [facility] Comment on above: Performed By: #### B MP, TSH, ALT ####[facility] [address] [address]. Arslan Ma Urea nitrogen [Mass/Vol] 17.0 mg/dL Normal 7.0-18.0 [facility] Comment on above: Performed By: #### B MP, TSH, ALT ####[facility] [address] [address]Dr. Arslan Ma Urea nitrogen/Creatinin e [Mass ratio] 16.2 mg/mg Normal [facility] Comment on above: Performed By: #### B MP, TSH, ALT ####[facility] [address] [address]Dr. Arslan Ma SGPTon 05-20-2022 ALT [Catalytic activity/Vol] 29 U/L Normal 16-63 [facility] Comment on above: Performed By: #### B MP, TSH, ALT #### [facility] [address] [place] [address] Dr. Arslan Ma TSHon 05-20-2022 TSH 0.964 uIU/mL Normal 0.358-3.740 [facility] Comment on above: Performed By: #### B MP, TSH, ALT ####[facility] [address] [address]Dr. Arslan Ma CBC AUTO DIFFon 01-14-2022 BASO # 0.1 103/ul Normal 0.0-0.1 [facility] Comment on above: Performed By: #### C BC #### [facility] [address] [place] [address] Dr. Arslan Ma Basophils/100 WBC (Bld) 0.8 % Normal 0.2-2.0 [facility] Comment on above: Performed By: #### C BC #### [facility] [address] [place] [address] Dr. Arslan Ma EO # 0.3 103/ul Normal 0.0-0.7 [facility] Comment on above: Performed By: #### C BC #### [facility] [address] [place] [address] Dr. Arslan Ma Eosinophils/100 WBC (Bld) 4.4 % Normal 0.9-7.0 [facility] Comment on above: Performed By: #### C BC #### [facility] [address] [place] [address] Dr. Arslan Ma Erythrocyte distribution width (RBC) [Ratio] 13.4 % Normal 11.0-15.0 [facility] Comment on above: Performed By: #### C BC #### [facility] [address] [place] [address] Dr. Arslan Ma Hematocrit (Bld) [Volume fraction] 42.3 % Normal 42.0-54.0 [facility] Comment on above: Performed By: #### C BC #### [facility] [address] [place] [address] Dr. Arslan Ma Hemoglobin (Bld) [Mass/Vol] 13.6 g/dL Critically low 14.0-18.0 [facility] Comment on above: Performed By: #### C BC #### [facility] [address] [place] [address] Dr. Arslan Ma IG # 0.05 10e3/ul Critically high 0.00-0.03 [facility] Comment on above: Performed By: #### C BC #### [facility] [address] [place] [address] Dr. Arslan Ma IG % 0.8 % Critically high 0.0-0.5 [facility] Comment on above: Performed By: #### C BC #### [facility] [address] [place] [address] Dr. Arslan Ma LYMPH # 1.2 103/ul Normal 1.2-3.8 [facility] Comment on above: Performed By: #### C BC #### [facility] [address] [place] [address] Dr. Arslan Ma Lymphocytes/100 WBC (Bld) 18.2 % Critically low 20.5-60.0 [facility] Comment on above: Performed By: #### C BC #### [facility] [address] [place] [address] Dr. Arslan Ma MANUAL DIFF REQ NO Normal [facility] Comment on above: Performed By: #### C BC #### [facility] [address] [place] [address] Dr. Arslan Ma MCH (RBC) [Entitic mass] 27.1 pg Normal 25.9-34.0 [facility] Comment on above: Performed By: #### C BC #### [facility] [address] [place] [address] Dr. Arslan Ma MCHC (RBC) [Mass/Vol] 32.2 g/dL Normal 29.9-35.2 [facility] Comment on above: Performed By: #### C BC #### [facility] [address] [place] [address] Dr. Arslan Ma MCV (RBC) [Entitic vol] 84.4 fL Normal 80.0-94.0 [facility] Comment on above: Performed By: #### C BC #### [facility] [address] [place] [address] Dr. Arslan Ma MONO # 0.5 103/ul Normal 0.3-0.8 [facility] Comment on above: Performed By: #### C BC #### [facility] [address] [place] [address] Dr. Arslan Ma Monocytes/100 WBC (Bld) 7.5 % Normal 1.7-12.0 [facility] Comment on above: Performed By: #### C BC #### [facility] [address] [place] [address] Dr. Arslan Ma NEUT # 4.5 103/ul Normal 1.4-6.5 [facility] Comment on above: Performed By: #### C BC #### [facility] [address] [place] [address] Dr. Arslan Ma Neutrophils/100 WBC (Bld) 68.3 % Normal 43.0-75.0 [facility] Comment on above: Performed By: #### C BC #### [facility] [address] [address] [address] Arslan Ma Platelet mean volume (Bld) [Entitic vol] 9.3 fL Critically low 9.5-13.5 [facility] Comment on above: Performed By: #### C BC #### [facility] [address] [address] [address] Arslan Ma PLT 154 103/ul Normal 150-450 [facility] Comment on above: Performed By: #### C BC #### [facility] [address] [address] [address] Arslan Ma RBC 5.01 106/ul Normal 4.70-6.10 [facility] Comment on above: Performed By: #### C BC #### [facility] [address] [address] [address] Arslan Ma WBC 6.6 103/ul Normal 4.0-11.0 [facility] Comment on above: Performed By: #### C BC #### [facility] [address] [address] [address] Arslan Ma FERRITINon 01-14-2022 Ferritin [Mass/Vol] 77.0 ng/mL Normal 17.9-464.0 [facility] Comment on above: Performed By: #### V ITB12, FERR ####[facility] [address] [address]Dr. Arslan Ma GLYCOHEMOGLOBIN A1Con 2021 ADA RECOMMENDATION ADA THERAPEUTIC TARG ET 6.0 - 7.0 ACTION SUGGESTED > 7.0 Normal [facility] Comment on above: Performed By: #### A 1C #### [facility] [address] [address] [address] Arslan Ma Glucose [Mass/Vol] 103 mg/dL Normal [facility] Comment on above: Performed By: #### A 1C #### [facility] [address] [address] [address] Arslan Ma HbA1c (Bld) [Mass fraction] 5.2 % Normal <=6.0 [facility] Comment on above: Performed By: #### A 1C #### [facility] [address] [place], [place] [address] Dr. Arslan Ma VITAMIN B12on 01-14-2022 Cobalamin (Vitamin B12) [Mass/Vol] 688.0 pg/mL Normal 239.0-931.0 [facility] Comment on above: Performed By: #### V ITB12, FERR ####[facility] [address] [place], [place] [address]XyDr. Arslan Ma COVID-19 Positive/Negativeon 11-13-2020 COVID-19 Positive/Negative Negative Negative [facility] Comment on above: Testing for SARS-CoV -2 by RT-PCRThis test was developed and its performance characteristics determined by [employer] and validated at the [facility]. This test has not been FDA cleared or approved. This test has been authorized by FDA under an Emergency Use Authorization (EUA). This test has been validated in accordance with the FDA's Guidance Document (Policy for Diagnostics Testing in Laboratories Certified to Perform High Complexity Testing under CLIA prior to Emergency Use Authorization for Coronavirus Disease-2019 during the Public Health Emergency) issued on February 06, 2020. This test is only authorized for the duration of time the declaration that circumstances exist justifying the authorization of the emergency use of in vitro diagnostic tests for detection of SARS-CoV-2 virus and/or diagnosis of COVID-19 infection under section 564(b)(1) of the Act, 21 U.S.C. 360bbb-3(b)(1), unless the authorization is terminated or revoked sooner. Otheron 11-13-2020 Coronavirus 2019 PCR Interp N/A [facility] Vital Signs Date Time Vital Sign Value Performing Clinician Facility 11-02-2023 14:30-0500 Body height 176.53 cm [facility] Other [facility] Other 11-02-2023 14:30-0500 Body mass index (BMI) [Ratio] 38.63 kg/m2 [facility] Other [facility] Other 11-02-2023 14:30-0500 Body weight 120.39 kg Pascual Ball Other [facility] Other 11-02-2023 14:30-0500 Diastolic blood pressure 63 mm[Hg] [facility] Ball Other [facility] Other 11-02-2023 14:30-0500 Respiratory rate 12 /min [facility] Ball Other [facility] Other 11-02-2023 14:30-0500 Systolic blood pressure 117 mm[Hg] [facility] Ball Other [facility] Other 07-25-2023 15:30-0400 Body height 176.53 cm [facility] Ball Other [facility] Other 07-25-2023 15:30-0400 Body mass index (BMI) [Ratio] 38.48 kg/m2 [facility] Ball Other [facility] Other 07-25-2023 15:30-0400 Body weight 119.93 kg Pascual Ball Other [facility] Other 07-25-2023 15:30-0400 Diastolic blood pressure 78 mm[Hg] Pascual Ball Other [facility] Other 07-25-2023 15:30-0400 Respiratory rate 12 /min Pascual Ball Other [facility] Other 07-25-2023 15:30-0400 Systolic blood pressure 125 mm[Hg] Pascual Ball Other [facility] Other 04-05-2023 15:44-0400 Blood Pressure Location Toro DODGE [facility] [place] 04-05-2023 15:44-0400 Diastolic blood pressure 82 mm[Hg] Toro NILL [facility] [place] 04-05-2023 15:44-0400 Heart rate 68 /min Toro DODGE [facility] [place] 04-05-2023 15:44-0400 Respiratory rate 16 /min Toro PRADOL [facility] [place] 04-05-2023 15:44-0400 Systolic blood pressure 142 mm[Hg] Toro PRADOL [facility] [place] 11-21-2022 10:00-0500 Body height 176.53 cm Pascual Ball Other [facility] Other 11-21-2022 10:00-0500 Body mass index (BMI) [Ratio] 38.02 kg/m2 Pascual Ball Other [facility] Other 11-21-2022 10:00-0500 Body weight 118.48 kg Pascual Ball Other [facility] Other 11-21-2022 10:00-0500 Diastolic blood pressure 82 mm[Hg] Pascual Ball Other [facility] Other 11-21-2022 10:00-0500 Respiratory rate 12 /min Pascual Ball Other [facility] Other 11-21-2022 10:00-0500 Systolic blood pressure 136 mm[Hg] Pascual Ball Other [facility] Other 07-03-2022 14:20-0400 Body height 176.53 cm Melissa Richter Other [facility] Other 07-03-2022 14:20-0400 Body mass index (BMI) [Ratio] 36.59 kg/m2 Melissa Richter Other [facility] Other 07-03-2022 14:20-0400 Body temperature 98.7 [degF] Melissa Richter Other [facility] Other 07-03-2022 14:20-0400 Body weight 114.04 kg Melissa Richter Other [facility] Other 07-03-2022 14:20-0400 Diastolic blood pressure 76 mm[Hg] Melissa Richter Other [facility] Other 07-03-2022 14:20-0400 SaO2% (BldA) [Mass fraction] 96 % Melissa Richter Other [facility] Other 07-03-2022 14:20-0400 Systolic blood pressure 128 mm[Hg] Melissa Richter Other [facility] Other Encounters Encounter Date Encounter Type Care Provider Facility Start: 11-02-2023 End: 11-02-2023 ambulatory Pascual Orlin Other [facility] Other Start: 11-02-2023 Office outpatient vi sit 25 minutes Pascual Ball [facility] Start: 10-25-2023 End: 10-25-2023 ambulatory Pascual Ball Other [facility] Other Start: 10-25-2023 Telephone encounter Pascual Ball [facility] Start: 10-23-2023 End: 10-23-2023 ambulatory Pascual Ball Other [facility] Other Start: 10-23-2023 Telephone encounter Pascual Ball [facility] Start: 07-25-2023 End: 07-25-2023 ambulatory Pascual Ball Other [facility] Other Start: 07-25-2023 Office outpatient vi sit 25 minutes Pascual Ordaz [facility] Start: 05-30-2023 End: 05-31-2023 ambulatory Toro R NILL Facility:[facility] Start: 05-24-2023 End: 05-24-2023 ambulatory Pascual Ordaz Other [facility] Other Start: 05-24-2023 Telephone encounter Pascual MATA Counts Include 234 Beds [facility] Start: 05-17-2023 End: 05-18-2023 ambulatory Toro R NILL Facility:CD:[id number] Start: 04-05-2023 End: 04-06-2023 ambulatory Toro R NILL Facility:[facility] Start: 04-05-2023 End: 04-05-2023 Patient encounter procedure Toro R NILL General [facility] Start: 03-31-2023 ambulatory Toro NILL Facility:[facility] Start: 03-22-2023 ambulatory Toro R NILL Facility : [place] Start: 12-27-2022 End: 12-27-2022 ambulatory Pascual Ordaz Other [facility] Other Start: 12-27-2022 Telephone encounter Pascual Ordaz [facility] Start: 12-26-2022 End: 12-27-[address] PASCUAL ORDAZ Facility:[facility] Start: 11-30-2022 Encounter for genera l adult medical examination without abnormal findings DR PASCUAL ORDAZ [facility] Start: 11-26-2022 End: 11-27-[address] PASCUAL ORDAZ Facility:[facility] Start: 11-26-2022 End: 11-27-2022 Encounter for general adult medical examination without abnormal findings DR PASCUAL ORDAZ Facility:[facility] Start: 11-21-2022 End: 11-21-2022 ambulatory Pascual Ordaz Other [facility] Other Start: 11-21-2022 Patient encounter procedure Pascual Ordaz [facility] Start: 11-21-2022 Periodic preventive med est patient 40-64yrs Pascual Ordaz [facility] Start: 07-12-2022 End: 07-13-2022 ambulatory LAMBERTO JOHNSON Facility:[facility] Start: 07-03-2022 End: 07-03-2022 ambulatory Melissa Richter Other [facility] Other Start: 07-03-2022 Office outpatient vi sit 15 minutes Melissa Richter [facility] Start: 06-15-[address] PASCUAL ORDAZ Facildavid ty:[facility] Start: 05-23-[address] PASCUAL Zhu ty:[facility] Start: 05-20-2022 End: 05-21-[address] PASCUAL ORDAZ Facility:[facility] Start: 01-14-2022 End: 01-15-[address] PASCUAL ORDAZ Facility:[facility] Start: 01-11-2022 End: 01-12-2022 ambulatory LAMBERTO JOHNSON Facility:[facility] Start: 11-13-2020 End: 11-13-2020 Patient encounter procedure Pascual Ordaz -Pre-Surgical Testing Procedures Date Procedure Procedure Detail Performing Clinician Start: 11-26-2022 PSA screening LAMBERTOHILARIO GTZEN Comment on above: Performed By: #### P [facility] #### [facility] [address] [place] [address] Dr. Arslan Ma Start: 11-16-2020 Esophagogastroduodenoscopy Toro DODGE Start: 04-06-2019 Colonoscopy Toro CARDOZA Start: 11-06-2014 Nasal septoplasty Spenser sorin DODGE Arthroscopy of knee Toro DODGE Depression screening Prema Ordaz Other Excision of lipoma Toro PEARSON Comment on above: neck Metatarsophalangeal fusion M sumeet DODGE Immunizations Immunization Date Immunization Notes Care Provider Fa cility 03-22-2021 SARS-CoV-2 (COVID-19 ) mRNA BNT-162b2 vax Toro DODGE [facility] [place] 03-01-2021 SARS-CoV-2 (COVID-19 ) mRNA BNT-162b2 álvaro DODGE [facility] [place] 07-21-2015 diphtheria, tetanus toxoids and acellular pertussis vaccine, unspecified formulation Pascual Ball Other [facility] Other Payers Date Payer Category Payer Unknown [id number] 2.16.84 [id number] 1965 Unknown [id number] 2.16.84 [id number] 1965 Unknown [id number] 2.16.84 [id number] 1963 Unknown [id number] 2.16.84 [id number] 1963 Unknown [id number] 2.16.84 [id number] 1963 Unknown [id number] 2.16.84 [id number] 1963 Unknown [id number] 2.16.84 [id number] 1963 Unknown [id number] 2.16.84 [id number] 1963 Unknown [id number] 2.16.8 [id number] 1965 Unknown [id number] 2.16.8 [id number] 1963 Unknown [id number] 2.16.8 [id number] 1965 Unknown [id number] 2.16.8 [id number] 1959 Unknown [id number] 1961 Unknown [id number] Self-pay Self Pay [id number] Social History Date Type Detail Facility Start: 11-13-2020 End: 04-05-2023 Tobacco smoking status NHIS Never smoked tobacco (finding) [facility] Start: 1965 Sex Assigned At Male [facility] Sex Assigned At [facility] Tobacco smoking status Never Gener al [facility] [place] Goals Date Patient Goal Desired Activity /State Functional Status Date Assessment Result Facility 04-05-2023 Functional Status N/A [facility]-06-2021 to 11-02-2023 Note Date & Type Note Facility 11-02-2023 Evaluation note Encounter Date Diagnosis Assessment Notes Oct, Primary hypertension (ICD-10 - I10) Echo: LVEF 55%, RVSP 28, RV normal size/functio n This patient is instructed to consume a healthy, low-fat, low-salt diet. They are also encouraged to continue exercise to achieve/maintain a normal BMI. Patient is instructed on home BP measurements: - rest for 5 minutes w/o talking- positioned w/ feet on floor and arm supported- average best 2/3 readings w/ goal < 135/85 Increase Losartan to 2 daily Oct, Impaired fasting glucose (ICD-10 - R73.01) Healthy diet, exercise and weight loss. Monitor A1C every 4-6 mo. Instructed on s/s hyperglycemia of polydipsia, polyuria and polyphagia. Notify office w/ suspicious symptoms Oct, Obstructive sleep apnea (adult) (pediatric) (ICD-10 - G47.33) This patient is aware of the benefits associated with ILEANA: With continued use, the patient reduces the risk for WA, CVA, HTN, cardiac dysrhythmias and sudden cardiac deaths.The patient is also aware of the association between ILEANA and morning headaches, daytime somnolence, fatigue and obesity, which also has been improved with continued use.The patient is compliant with treatment, wearing the equipment every night for greater than 4 hours.The patient is instructed to continue use of the CPAP for ILEANA treatment. Oct, Ascending aorta dilatation (ICD-10 - I77.810) Echo: 4.1cm - 10/2023 Reviewed his Echo results. AAA treatment centered on controlling BP. Instructed on seeking help w/ severe pain in chest or back. Oct, LAQUITA (generalized anxiety disorder) (ICD-10 - F41.1) Healthy diet, exercise and keep active Declines medical treatment. Oct, Morbid (severe) obesity due to excess calories (ICD-10 - E66.01) This patient has been instructed on a low-fat, high-fiber diet. They are instructed to reduce calories, portion sizes and snacks. It is recommended that they exercise for 30 minutes, 3-5 times weekly. Oct, Body mass index [BMI] 38.0-38.9, adult (ICD-10 - Z68.38) Oct, Venous insufficiency (chronic) (peripheral) (ICD-10 - I87.2) Avoid salt and elevate lower extremities, support stockings, inspect legs and feet daily for blisters and ulcerations. Oct, Gastro-esophagea l reflux disease with esophagitis, without bleeding (ICD-10 - K21.00) Avoid lying flat after eating. Avoid eating 2 hours prior to bedtime. Smaller, frequent meals may be better tolerated.Weight loss if overweight.PPI with any heartburn.Monito r for dysphagia. Oct, Migratory pain (ICD-10 - R52) Unsure of etiology. Cardiac evaluation during hospital stay. Monitor for now but may be stress related Call w/ any questions [facility] Other 12-20-2023 Evaluation note* Encounter Date Diagnosis Assessment Notes Treatment Notes Treatment Clinical Notes Oct, Primary hypertension (ICD-10 - I10) Echo: 10/2023 - LVEF is 55 to 60%. - Normal right ventricular size, systolic function and RVSP. - Mildly to moderately dilated aortic root [4.2 cm], and ascending aorta [4.1 cm]. [facility] Other 09-19-2023 Evaluation note* Encounter Date Diagnosis Assessment Notes Treatment Notes Treatment Clinical Notes Jul, Primary hypertension (ICD-10 - I10) This patient is instructed to consume a healthy, low-fat, low-salt diet. They are also encouraged to continue exercise to achieve/maintain a normal BMI. Jul, Impaired fasting glucose (ICD-10 - R73.01) Healthy diet, exercise and weight loss A1C at wellness examination. No s/s diabetes: polydipsia/polyuri a/polyphagia or weight loss Jul, Obstructive sleep apnea (adult) (pediatric) (ICD-10 - G47.33) This patient is aware of the benefits associated with ILEANA: With continued use, the patient reduces the risk for WA, CVA, HTN, cardiac dysrhythmias and sudden cardiac deaths.The patient is also aware of the association between ILEANA and morning headaches, daytime somnolence, fatigue and obesity, which also has been improved with continued use.The patient is compliant with treatment, wearing the equipment every night for greater than 4 hours.The patient is instructed to continue use of the CPAP for ILEANA treatment. Jul, Morbid (severe) obesity due to excess calories (ICD-10 - E66.01) This patient has been instructed on a low-fat, high-fiber diet. They are instructed to reduce calories, portion sizes and snacks. It is recommended that they exercise for 30 minutes, 3-5 times weekly. Jul, Body mass index [BMI] 38.0-38.9, adult (ICD-10 - Z68.38) Jul, Dysfunction of right eustachian tube (ICD-10 - H69.91) Valsalva maneuver as much as possible. Flonase NS daily to right nostril. Laly if allergy symptoms develop Jul, Venous insufficiency (chronic) (peripheral) (ICD-10 - I87.2) Avoid salt and elevate lower extremities, support stockings, inspect legs and feet daily for blisters and ulcerations. Jul, Gastro-esophageal reflux disease with esophagitis, without bleeding (ICD-10 - K21.00) Diet instructions: Smaller portions, avoid eating and laying flat, avoid eating or drinking prior to bedtime. Weight loss. Jul, Hypokalemia (ICD-10 - E87.6) Continue potassium replacement [facility] Other 05-31-2023 NoteChief Complaint consultation for back mass HPI Staff 57 year old male presents on consultation from Dr. Ordaz for subcutaneous mass left mid back. Present approximately one-two years with gradual increase in size. Intermittent discomfort. Never opened or drained. History of Present Illness 57 yo male with h/o htn, GERD, ILEANA, referred for enlarging, painful lipoma left mid back; no injuryto area, no skin changes, no imaging; had lipoma removed from right neck in past; no asa or NSAID use; no tobacco use. Review of Systems PHQ Score Initial Depression Screen Score: 0 ROS - Provider Constitutional: no fever, no sweats, no weight loss. Eyes: no glasses, no blurred vision, no visual loss. ENMT: no dentures, no hoarseness, no swallowing difficulties, no hearing loss, no ear infection(s),no nose bleeds. Cardiovascular: normal blood pressure, no chest pain, regular heartbeat, no heart murmur. Respiratory: no shortness of breath, no cough, no asthma, no wheezing. Gastrointestinal: no nausea, no vomiting, no diarrhea, no constipation, no blood in stool, no change in bowel habits, no abdominal pain, no hepatitis. Genitourinary: no kidney stones, no urine infection, no dysuria. Musculoskeletal: no pain, no weakness. Skin: no changing moles, no rash, yes skin lumps. Neurologic: no seizures, no epilepsy, no headache. Psychiatric: no emotional or psychiatric problem. Heme/Lymph: no bleeding problems, no anemia, no blood clots, no transfusions. Allergy/Immunologic: no swollen lymph nodes/glands, no IV drug abuse. Other: Additional ROS info: Except as noted in the above Review of Systems and in the History of Present Illness, all other systems have been reviewed and are negative or noncontributory. Physical Exam Vitals & Measurements HR: 68(Peripheral) RR: 16 BP: 142/82 HT: 69 in HT: 176.5 cm WT: 119.9 kg WT: 263.78 lb BMI: 38.49 HEENT: normal conjunctiva, sclera clear, no scleral icterus, EOM intact, PERRLA, oral mucosa moist without lesions. Neck: trachea midline, no mass, symmetric, no thyromegaly or nodules, no adenopathy Respiratory: lungs CTA, respirations non labored. Cardiovascular: regular rate and rhythm, no murmur, no pedal edema or varicosities. Gastrointestinal: obese, soft, non distended, no tenderness, no masses, no palpable hernias, diastasis recti no, no hepatosplenomegaly; normal bs Musculoskeletal: normal gait, digits and nails without infection, nodes, cyanosis, clubbing. Skin: no rashes, no lesions, no ulcers, 1.5 cm firm nodule left mid back, no skin changes Psychiatric/Neuro: oriented to time, place, person, judgement normal, affect appropriate for age, insight intact, no focal deficits. Tests: review of old records completed, Discussed surgical options, risks, and possible complications with patient. Assessment/Plan 1. Lipoma of back (D17.1: Benign lipomatous neoplasm of skin and subcutaneous tissue of trunk) plan excisional biopsy under local anesthesia at [facility] for definitive diagnosis and treatment; informed consent obtained. Follow-up No qualifying data available Problem List/Past Medical History Ongoing Anemia BMI 38.0-38.9,adult Erosive esophagitis Essential hypertension Gastric hemorrhage due to chronic superficial gastritis GERD (gastroesophageal reflux disease) Hypokalemia Inflammatory polyarthropathy Lipoma of back Obesity Obstructive sleep apnea syndrome Peripheral venous insufficiency Historical No qualifying data Procedure/Surgical History EGD - Esophagogastroduodenoscopy (11/16/2020), Colonoscopy (04/2019), Nasal septoplasty (2014), Arthroscopy of knee, Excision of lipoma, Fusion of metatarsophalangeal joint. Medications amLODIPine 10 mg Tab, 10 mg= 1 tab(s), Oral, Daily carvedilol 12.5 mg Tab, 12.5 mg= 1 tab(s), Oral, BID hydrochlorothiazide-losartan 12.5 mg-50 mg Tab, 1 tab(s), Oral, Daily potassium chloride 10 mEq Cap-ER, 10 mEq= 1 cap(s), Oral, Daily Allergies No Known Allergies No Known Medication Allergies Social History Alcohol - Denies Alcohol Use, 04/05/2023 Substance Abuse - Denies Substance Abuse, 04/05/2023 Tobacco Never (less than 100 in lifetime) Tobacco Use:. Never Smokeless Tobacco Use:., 04/05/2023 Family History Asthma: Sister. Diabetes mellitus type 2: Father. Hypertension: Mother, Sister and Brother. Immunizations Vaccine Date Status SARS-CoV-2 (COVID-19) mRNA BNT-162b2 vax 03/22/2021 Recorded SARS-CoV-2 (COVID-19) mRNA BNT-162b2 vax 03/01/2021 [facility] CenterComment on above:Result Comment: Electronically Signed By: ECHO CHAPA, Toro Angel\Date and Time Signed: 04/05/23 16:19 [id number] Evaluation note * Encounter Date Diagnosis Assessment Notes Treatment Notes Treatment Clinical Notes Dec, ILEANA (obstructive sleep apnea) (ICD-10 - G47.33) BiPAP 21/09, full facial mask [facility] Other 01-16-2023 Evaluation note* Encounter Date Diagnosis Assessment Notes Treatment Notes Treatment Clinical Notes Nov, Essential hypertensi on (ICD-10 - I10) This patient is instructed to consume a healthy, low-fat, low-salt diet. They are also encouraged to continue exercise to achieve/maintain a normal BMI. Nov, Impaired fasting glucose (ICD-10 - R73.01) Healthy diet, exercise and weight loss Nov, ILEANA (obstructive sle ep apnea) (ICD-10 - G47.33) Recommend retitration study. Noncompliant at this time. This patient is aware of the benefits associated with ILEANA: With continued use, the patient reduces the risk for WA, CVA, HTN, cardiac dysrhythmias and sudden cardiac deaths. The patient is also aware of the association between ILEANA and morning headaches, daytime somnolence, fatigue and obesity Nov, Gastroesophageal reflux disease with esophagitis without hemorrhage (ICD-10 - K21.00) Diet instructions: Smaller portions, avoid eating and laying flat, avoid eating or drinking prior to bedtime. Weight loss. Nov, Chronic venous insufficiency (ICD-10 - I87.2) Avoid salt and elevate lower extremities, support stockings, inspect legs and feet daily for blisters and ulcerations. Nov, Exogenous obesity (ICD-10 - E66.09) This patient has been instructed on a low-fat, high-fiber diet. They are instructed to reduce calories, portion sizes and snacks. It is recommended that they exercise for 30 minutes, 3-5 times weekly. Nov, Nocturia (ICD-10 - R35.1) Nov, Benign prostatic hyperplasia with lower urinary tract symptoms (ICD-10 - N40.1) Yearly PSA and XIMENA Nov, Annual physical exam (ICD-10 - Z00.00) Healthy diet and exercise. Reviewed age-appropriate preventive testing recommended. [facility] Other 09-07-2022 NotePROCEDURE: XR FOOT RT MIN 3 VIEWS COMPARISON: 01/11/2022 HISTORY: Pain in right foot FINDINGS: BONES:Stable fusion first metatarsal-phalangeal joint with a dorsal plate and multiple screws. No new fracture or dislocation. Moderate degenerative changes. Mild to moderate enthesopathic spurring of the calcaneus. SOFT TISSUES:Negative. No visible soft tissue swelling. EFFUSION:None visible. OTHER: Negative. IMPRESSION: Stable degenerative changes and first metatarsal-phalangeal joint fusion Electronically authenticated by: ALEXANDER STEARNS Date: 2022-07-13 06:50[facility]28[facility]* Encounter Date Diagnosis Assessment Notes Treatment Notes Treatment Clinical Notes Jun, Acute bacterial conjunctivitis of both eyes (ICD-10 - H10.33) Use medication as directed. Recommend discarding makeup if applicable. Need to wash linens on bed. Jun, Poison cristobal dermatiti s (ICD-10 - L23.7) Take medications as directed. Complete all doses. Wash all belongings that came in contact with plant oils. Diluted dishwashing liquid will remove oils from skin very well. May try to use Calamine lotion and OTC Zyrtec for symptom relief. Follow up with primary care provider if no improvement of symptoms with treatment [facility] Other 03-08-2022 NotePROCEDURE: XR FOOT RT MIN 3 VIEWS COMPARISON: 11/16/2021 HISTORY: Pain in right foot FINDINGS: BONES:Stable fusion the first metatarsal-phalangeal joint with a dorsal plate and multiple screws. Stable degenerative changes. Moderate enthesopathic spurring of the calcaneus. No mechanical failure SOFT TISSUES:Negative. No visible soft tissue swelling. EFFUSION:None visible. OTHER: Negative. IMPRESSION: Stable first metatarsal-phalangeal joint fusion with no mechanical failure Electronically authenticated by: ALEXANDER STEARNS Date: 2022-01-11 15:52[id number] History general Narrative - Reported* Type Description Date Medical History hypertension Medical History arthritis Surgical History neck surgery to remove fatty tu mor Surgical History left knee surgery Surgical History nose surgery Surgical History RT great toe 08/2021 Hospitalization History see above [facility] Other Evaluation + Plan note No data available for this section [facility] [place] Evaluation noteNo InformationNort IMT ([employer]) Other History general Narrative - Reported* Type Description Date Medical History Hallux rigidus of right foot Medical History Post-traumatic osteoarthritis, r ight ankle and foot Medical History Chronic venous insufficiency Medical History Anemia, unspecified type Medical History Inflammatory polyarthropathy Medical History Mass of soft tissue Medical History Chronic superficial gastritis wi th bleeding Medical History Essential hypertension Medical History Chronic blood loss anemia Medical History Hypokalemia Medical History Impaired fasting glucose Medical History ILEANA (obstructive sleep apnea) Medical History Fatigue, unspecified type Medical History Obesity (BMI 30-39.9) Medical History Pain of right foot Medical History Gastroesophageal ref lux disease with esophagitis without hemorrhage Medical History Erosive esophagitis Medical History Depression screening Medical History Abrasion Medical History Right groin pain Medical History Benign prostatic hyp erplasia with lower urinary tract symptoms, symptom details unspecified Medical History Arm pain, right Medical History Primary osteoarthritis of knees, bilateral Surgical History Fusion of metatarsso phalangeal join of right foot using pin 08/30/21 Surgical History EGD 11/16/20 Surgical History Colonoscopy with polypectomy 2018 Surgical History Septoplasty 10/2015 Hospitalization History see surgical history [facility] Other History general Narrative - Reported* Type Description Date Medical History Hallux rigidus of right foot Medical History Post-traumatic osteoarthritis, r ight ankle and foot Medical History Chronic venous insufficiency Medical History Anemia, unspecified type Medical History Inflammatory polyarthropathy Medical History Mass of soft tissue Medical History Chronic superficial gastritis wi th bleeding Medical History Essential hypertension Medical History Chronic blood loss anemia Medical History Hypokalemia Medical History Impaired fasting glucose Medical History ILEANA (obstructive sleep apnea) Medical History Fatigue, unspecified type Medical History Obesity (BMI 30-39.9) Medical History Pain of right foot Medical History Gastroesophageal ref lux disease with esophagitis without hemorrhage Medical History Erosive esophagitis Medical History Depression screening Medical History Abrasion Medical History Right groin pain Medical History Benign prostatic hyp erplasia with lower urinary tract symptoms, symptom details unspecified Medical History Arm pain, right Medical History Primary osteoarthritis of knees, bilateral Surgical History Fusion of metatarsso phalangeal join of right foot using pin 08/30/21 Surgical History EGD 11/16/20 Surgical History Colonoscopy with polypectomy 2018 Surgical History Septoplasty 10/2015 Surgical History Excision of large lipoma on trae k 05/2023 Hospitalization History see surgical history [facility] Other Hospital Discharge instructions No data available for this section [facility] Progress note No data available for this section [facility] [place] Advance Directives Advance Directive Response Recorded Date/ Time Advance Directives No April 25 12:34pm Chief Complaint and Reason for Visit Chief Complaint Anemia/Heartburn/Ind igestion Assessments No Assessments Information Available Family History Relationship Condition Age at Onset Recorded Date/T belen Not Specified Malignant neoplasm of breast Unknown grandparent Malignant neoplasm of colon Unknown father Malignant neoplasm Unknown Summary Purpose Additional Source Comments REASON FOR VISIT (unrecogniz ed section and content) RIGHT EYE IRRITATION, RASHWE LLNESSNo InformationNo InformationNo InformationCheck up AfternoonNo InformationTBH (unrecognized sect ion and content) No Status Records FoundNo Status Records Found INFORMATION SOURCE (unrecogn ized section and content) DATE CREATED AUTHOR 12/31/2022 [facility] DATE CREATED AUTHOR AUTHOR'S ORGANIZ ATION 06/02/2023 [facility] Patient Care team informatio n (unrecognized section and content) Personnel Name: PASCUAL ORDAZ DO Address: Address: [address] [place], [place] [address] FOR RECORDS PERTAINING TO PATIENTS WHO ARE OR HAVE BEEN ENROLLED IN A CHEMICAL DEPENDENCY/SUBSTANCEABUSE PROGRAM, SOME INFORMATION MAY BE OMITTED. This clinical summary was aggregated from multiple sources. Caution should be exercised in using it in the provision of clinical care. This summary normalizes information from multiple sources, and as a consequence, information in this document may materially change the coding, format and clinical context of patient data. In addition, data may be omitted in some cases. CLINICAL DECISIONS SHOULD BE BASED ON THE PRIMARY CLINICAL RECORDS. [facility] [employer] [facility] provides no warranty or guarantee of the accuracy or completeness of information in this document.
[2023-12-02 08:38] LABS: Basophils Percent Auto 0.5 % (0.2-2.0); Eosinophils Absolute Auto 0.3 10^3/uL (0.0-0.7); Eosinophils Percent Auto 4.5 % (0.9-7.0); Hematocrit 40.2 % (42.0-54.0); Hemoglobin 13.3 g/dL (14.0-18.0); Immature Granulocytes Abs Auto 0.06 10^3/uL (0.00-0.03); Immature Granulocytes Pct Auto 0.9 % (0.0-0.5); Lymphocytes Absolute Auto 1.1 10^3/uL (1.2-3.8); Lymphocytes Percent Auto 17.8 % (20.5-60.0); Mean Corpuscular HGB Conc 33.1 g/dL (29.9-35.2); Mean Corpuscular Hemoglobin 27.1 pg (25.9-34.0); Mean Corpuscular Volume 81.9 fL (80.0-94.0); Mean Platelet Volume 9.2 fL (9.5-13.5); Monocytes Absolute Auto 0.5 10^3/uL (0.3-0.8); Monocytes Percent Auto 8.1 % (1.7-12.0); Neutrophils Absolute Auto 4.4 10^3/uL (1.4-6.5); Neutrophils Percent Auto 68.2 % (43.0-75.0); Platelet Count 168 10^3/uL (150-450); Red Blood Count 4.91 10^6/uL (4.70-6.10); Red Cell Distribution Width 13.1 % (11.0-15.0); White Blood Count 6.4 10^3/uL (4.0-11.0)
[2023-12-02 08:50] LABS: Estimated Average Glucose 123 mg/dL; Glycohemoglobin A1C 5.9 % (4.5-6.2)
[2023-12-02 09:13] LABS: Chol HDL Ratio 3.4; Cholesterol 148 mg/dL (<=200); HDL Cholesterol 44 mg/dL (40-60); LDL Cholesterol Calculated 85.2 mg/dL; Thyroid Stimulating Hormone 1.426 uIU/mL (0.358-3.740); Triglycerides 94 mg/dL (<=150); VLDL CHOLESTEROL 18.8 mg/dL
[2023-12-02 09:48] LABS: Prostate Specific Antigen Scrn 2.14 ng/mL (<=4.00)
== END 2023-12-02 08:16 | disposition home or self-care (01) ==
PROVIDERS: PCP Internal Medicine; Visit Provider Internal Medicine
DX: Z00.00 Encounter for general adult medical examination without abnormal findings (principal); Z12.5 Encounter for screening for malignant neoplasm of prostate
CPT/HCPCS: 36415; 80061; 83036; 84443; 85025; G0103

== ENCOUNTER 2024-12-20 07:29 | Outpatient (OUT) | payer OTHER, SELFPAY ==
--- OUTSIDE RECORDS SUMMARY | 2024-12-20 07:32 | XMS_ITS | CCD ---
Author Organization [facility] Care Team Providers Care Raw Scales Operator Name Role Phone Pascual Ordaz Primary Care Provider [phone] Alexander Robison Attending Provider Melissa Richter Unavailable [...] Unavailable BALL, DR STEVENSON Primary Care Unavailable JINNY, DR [...] Unavailable NILL, Toro Kirby Attending Unavailable NILL, oTro Kirby Attending Unavailable BALL, PASCUAL Referring Unavailable Unavailable Unavailable Unavailable Allergies Allergy Classification Reported Allergen(s) Allergy Type Date of Onset Reaction(s) Facility (1 source) No Known Medication Allergies; Translations: [No Known Medication Allergies] Propensity to adverse reactions (disorder) [facility] Repository Medications Current Medications Medication Drug Class(es) Dates Sig (Normalized) Sig (Original) amLODIPine 10 mg oral tablet (17 sources) Dihydropyridine Calcium Channel Avinash Start: 01-16-2024 End: 04-10-2024 take 1 tablet by mouth once daily Amlodipine 10 mg tablet Active 0 .ROUTE .COMPLEX April 10, 2024 12:06pm TAKE ONE TABLET BY MOUTH DAILY Start: 04-12-2019 End: 01-16-2024 take 1 tablet by mouth once daily amLODIPine 10 mg Tab 10 mg = 1 tab(s), Oral, Daily, Oral, Refills(s) 0 Start Date: 03/24/23 Status: Ordered amLODIPine Besyl ate Active aspirin 81 mg delayed release oral tablet (5 sources) Platelet Aggregation Inhibitor, Nonsteroidal Anti-inflammatory Drug Start: 11-25-2024 Aspirin (Adult Lo w Dose Aspirin) 81 mg tablet,delayed release (DR/EC) Active 81 MG PO Daily November 25, 2024 12:00am take 1 tablet by porsche th every twenty-four hours Aspirin 81 MG 1 tablet Orally Once a day Active carvedilol 12.5 mg oral tablet (4 sources) alpha-Adrenergic Avinash, beta-Adrenergic Avinash Start: 03-24-2023 take 1 tablet by mouth twice daily [...] sodium 75 mg delayed release oral tablet (2 sources) Nonsteroidal Anti-inflammator y Drug Start: 04-12-2019 take 75 mg by mouth once daily Diclofenac Sodium Active 75 MG PO Daily April 12, 2019 5:37am glucosamine sulfate 750 mg oral tablet (2 sources) Start: 11-13-2020 take 1 tablet by mouth once daily Glucosamine Sulfate (Tena) 750 mg Tablet Active 750 MG PO Daily November 13, 2020 1:42pm hydroCHLOROthiazide 12.5 mg / losartan potassium 50 mg oral tablet (17 sources) Thiazide Diuretic, Angiotensin 2 Receptor Avinash Start: 09-13-2024 End: 09-17-2024 take 1 tablet by mouth once daily Losartan-Hydrochlorothiazi de 50-12.5 mg tablet Active 1 TAB PO Daily September 17, 2024 10:01am Start: 04-12-2019 End: 09-13-2024 take 1 tablet by mouth once daily hydrochlorothiazide-losartan 12.5 mg-50 mg Tab 1 tab(s), Oral, Daily, Refill(s) 0, Oral Start Date: 03/24/23 Status: Ordered methylPREDNISolone 4 mg oral tablet (1 source) Corticosteroid Start: 07-03-2022 methylPREDNISolone 4 MG as directed Orally Once a day for 6 days Jun, Active Multivitamin preparation (1 source) Start: 11-13-2020 take 1 tablet by mouth once daily Multivitamin Active 1 TAB PO Daily November 13, 2020 1:41pm Multivitamin Tablet (1 source) Start: 11-13-2020 take 1 tablet by mouth once daily Multivitamin Tablet Active 1 TAB PO Daily November 13, 2020 12:00am potassium chloride 10 meq extended release oral tablet (14 sources) Start: 05-14-2024 take 1 tablet by mouth once daily Potassium Chloride 10 mEq tablet extended release Active 0 .ROUTE .COMPLEX May 14, 2024 7:42am TAKE ONE TABLET BY MOUTH DAILY Start: 05-14-2024 End: 05-14-2024 take 1 tablet by mouth once daily Potassium Chloride 10 mEq tablet extended release Discontinued 10 MEQ PO Daily May 13, 2024 11:00pm May 14, 2024 7:42am Start: 03-24-2023 take 1 capsule by mo [facility] once daily potassium chloride 10 mEq Cap-ER 10 mEq = 1 cap(s), Oral, Daily, Oral, Refills(s) 0 Start Date: 03/24/23 Status: Ordered take 1 tablet by porsche once daily Potassium Chloride ER 10 MEQ TAKE 1 TABLET BY MOUTH DAILY Active take 1 capsule by mo [facility] every twenty-four hours Potassium Chloride 10 MEQ 1 capsule with food Orally Once a day Active Problems Active Problems Problem Classification Problem Date Documented Date Episodic/Chronic Abdominal pain (4 sources) Right lower quadrant pain; Translations: [Right lower quadrant pain] 10-18-2023 Episodic Comment on above: Problem List clean-u p per request of Phys. EHR Cmte Acquired foot deformities (11 sources) Acquired hallux rigidus; Translations: [Hallux rigidus, right foot] Chronic Anxiety disorders (6 sources) Generalized anxiety disorder; Translations: [Generalized anxiety disorder] Chronic Aortic; peripheral; and visceral artery aneurysms (8 sources) Ascending aorta dilatation; Translations: [Thoracic aortic ectasia] Chronic Comment on above: Echo: LVEF 55%, norm al RV size/function, RVSP 32, aorta 4.2cm - 10/2023 Deficiency and other anemia (3 sources) Anemia due to chronic blood loss; Translations: [Iron deficiency anemia secondary to blood loss (chronic)] Chronic Deficiency and other anemia (5 sources) Anemia; Translations: [Anemia, unspecified] 03-24-2023 Episodic Comment on above: Problem List clean-u p per request of Phys. EHR Cmte Diabetes mellitus without complication (19 sources) Impaired fasting glucose; Translations: [Impaired fasting glycemia] Onset: 01-14-2022 Episodic Esophageal disorders (20 sources) Erosive esophagitis; Translations: [Ulcer of esophagus without bleeding] 03-24-2023 Chronic Essential hypertension (19 sources) Essential hypertension; Translations: [Essential (primary) hypertension] Chronic Comment on above: Echo: LVEF 55%, norm al RV size/function, RVSP 32, aorta 4.2cm - 10/2023 Fluid and electrolyte disorders (5 sources) Hypokalemia; Translations: [Hypokalemia] 03-24-2023 Episodic Gastritis and duodenitis (12 sources) Gastric hemorrhage due to chronic superficial gastritis; Translations: [Chronic superficial gastritis with bleeding] 03-24-2023 Chronic Genitourinary symptoms and ill-defined conditions (1 source) Nocturia Episodic Hyperplasia of prostate (20 sources) Nocturia due to benign prostatic hypertrophy; [...] Episodic Other diseases of veins and lymphatics (19 sources) Peripheral venous insufficiency; Translations: [Venous insufficiency (chronic) (peripheral)] 03-24-2023 Episodic Other diseases of veins and lymphatics (5 sources) Venous insufficiency (chronic) (peripheral); Translations: [Venous (peripheral) insufficiency, unspecified] Episodic Other diseases of veins and lymphatics (1 source) Venous insufficiency of leg; Translations: [Venous insufficiency (chronic) (peripheral)] 11-21-2024 Episodic Other disorders of stomach and duodenum (5 sources) Indigestion; Translations: [Functional dyspepsia] 11-16-2020 Episodic Other disorders of stomach and duodenum (1 source) Disorder of function of stomach; Translations: [Disease of stomach and duodenum, unspecified] 10-18-2023 Episodic Comment on above: Problem List clean-u p per request of Phys. EHR Cmte Other injuries and conditions due to external causes (3 sources) Abrasion procedure; Translations: [Other injury of unspecified body region, initial encounter] Episodic Other nutritional; endocrine; and metabolic disorders (11 sources) Simple obesity ; Translations: [Other obesity due to excess calories] Chronic Other nutritional; endocrine; and metabolic disorders (13 sources) Obesity; Translations: [Obesity, unspecified] 03-24-2023 Chronic Other nutritional; endocrine; and metabolic disorders (1 source) Other obesity due to excess calories Chronic Other nutritional; endocrine; and metabolic disorders (9 sources) Body mass index 30+ - obesity; Translations: [Body mass index (BMI) 38.0-38.9, adult] 04-05-2023 Chronic Other nutritional; endocrine; and metabolic disorders (8 sources) Severe obesity; Translations: [Morbid (severe) obesity due to excess calories] Chronic Other nutritional; endocrine; and metabolic disorders (3 sources) Morbid (severe) obesity due to excess calories Chronic Other nutritional; endocrine; and metabolic disorders (3 sources) Body mass index (BMI) 38.0-38.9, adult Chronic Other nutritional; endocrine; and metabolic disorders (1 source) Obesity, unspecified; Translations: [Obesity, unspecified] 11-25-2024 Chronic Other screening for suspected conditions (not mental disorders or infectious disease) (8 sources) Encounter for screening for malignant neoplasm of prostate; Translations: [Encounter for screening for malignant neoplasm of colon] Onset: 11-30-2022 Episodic Comment on above: PSA: 1.48 - 10/2021, 2.14 - 11/2023, Problem List clean-u p per request of Phys. EHR Cmte Other upper respiratory infections (4 sources) Streptococcal sore throat; Translations: [Strep pharyngitis] Episodic Otitis media and related conditions (1 source) Unspecified Eustachian tube disorder, right ear Episodic Residual codes; unclassified (10 sources) Obstructive sleep apnea (adult) (pediatric); Translations: [Obstructive sleep apnea (adult)(pediatric)] Onset: 12-26-2022 Chronic Residual codes; unclassified (20 sources) Obstructive sleep apnea syndrome; Translations: [Obstructive [...] [ANEMIA UNSPECIFIED] Onset: 01-17-2022 Episodic Esophageal disorders (10 sources) Esophageal disorders; Translations: [Gastroesophageal reflux disease [...] Visit Summaryon 0 05-30-2023 Ambulatory Visit Summary FITZ BLANCHARD :1965 Visit Date:05/30/2023 Ambulatory Visit Instructions [...] sleep apnea syndrome Peripheral venous insufficiency Normal [facility] General Surgery Office/Clini c Noteon 05-30-2023 [...] (COVID-19) mRNA BNT-162b2 vax 03/01/2021 Recorded Normal [facility] Comment on above: Result Comment: Elec tronically Signed By: ECHO CHAPA, Toro Angel\Date and Time Signed: 05/30/23 15:44 EDT Pathology Noteon 05-29-2023 Pathology Note [id number]#1.00CD:127 [facility] Operative Reporton 3 Operative Report [id number]#1.00CD:127 [facility] Operative Reporton 3 Operative Report [id number]#1.00CD:127 [facility] Pre-Certification Formon Pre-Certification Form [id number]#1.00CD:127 [facility] Consent for Procedure/Surger yon 04-07-2023 Consent for Procedure/Surgery [id number]#1.00CD:127 Normal [facility] Facesheeton 04-06-2023 Facesheet [id number]#1.00CD:127 Normal [facility] Ambulatory Visit Summaryon 0 04-05-2023 Ambulatory Visit Summary FITZ BLANCHARD :1965 Visit Date:04/05/2023 Ambulatory Visit Instructions [...] sleep apnea syndrome Peripheral venous insufficiency Normal [facility] Physician Referralon 023 Physician Referral [id number]#1.00CD:127 Normal [facility] CBC AUTO DIFFon 11-26-2022 BASO # 0.0 103/ul Normal 0.0-0.1 [facility] Comment on above: Performed By: #### C BC ####[facility] [address] [place] [id number]. Arslan Ma Basophils/100 WBC (Bld) 0.6 % Normal 0.2-2.0 [facility] Comment on above: Performed By: #### C BC ####[facility] [address] [place] [address]Dr. Arslan Ma EO # 0.3 103/ul Normal 0.0-0.7 [facility] Comment on above: Performed By: #### C BC ####[facility] [address] [place], [place] [address]Dr. Arslan Ma Eosinophils/100 WBC (Bld) 4.4 % Normal 0.9-7.0 [facility] Comment on above: Performed By: #### C BC ####[facility] [address] [place], [place] [address]Dr. Arslan Ma Erythrocyte distribution width (RBC) [Ratio] 13.2 % Normal 11.0-15.0 [facility] Comment on above: Performed By: #### C BC ####[facility] [address] [place], [place] [address]Dr. Arslan Ma Hematocrit (Bld) [Volume fraction] 38.3 % Critically low 42.0-54.0 [facility] Comment on above: Performed By: #### C BC ####[facility] [address] [place], [place] [address]Dr. Arslan Ma Hemoglobin (Bld) [Mass/Vol] 13.9 g/dL Critically low 14.0-18.0 [facility] Comment on above: Performed By: #### C BC ####[facility] [address] [place], [place] [address]Dr. Arslan Ma IG # 0.03 10e3/ul Normal 0.00-0.03 [facility] Comment on above: Performed By: #### C BC ####[facility] [address] [place] [address]Dr. Arslan Ma IG % 0.5 % Normal 0.0-0.5 [facility] Comment on above: Performed By: #### C BC ####[facility] [address] [place] [address]Dr. Arslan Ma LYMPH # 1.2 103/ul Normal 1.2-3.8 [facility] Comment on above: Performed By: #### C BC ####[facility] [address] [place] [address]Dr. Arslan Ma Lymphocytes/100 WBC (Bld) 17.6 % Critically low 20.5-60.0 [facility] Comment on above: Performed By: #### C BC ####[facility] [address] [place], [place] [address]Dr. Arslan Ma MANUAL DIFF REQ NO Normal [facility] Comment on above: Performed By: #### C BC ####[facility] [address] [place] [address]Dr. Arslan Ma MCH (RBC) [Entitic mass] 27.3 pg Normal 25.9-34.0 [facility] Comment on above: Performed By: #### C BC ####[facility] [address] [place] [address]Dr. Arslan Ma MCHC (RBC) [Mass/Vol] 36.3 g/dL Critically high 29.9-35.2 [facility] Comment on above: Performed By: #### C BC ####[facility] [address] [place], [place] [address]Dr. Arslan Ma MCV (RBC) [Entitic vol] 75.2 fL Critically low 80.0-94.0 [facility] Comment on above: Performed By: #### C BC ####[facility] [address] [place], [place] [address]DrThom Ma MONO # 0.5 103/ul Normal 0.3-0.8 [facility] Comment on above: Performed By: #### C BC ####[facility] [address] [place] [id number]. Arslan Ma Monocytes/100 WBC (Bld) 7.7 % Normal 1.7-12.0 [facility] Comment on above: Performed By: #### C BC ####[facility] [address] [place] [id number]. Arslan Ma NEUT # 4.6 103/ul Normal 1.4-6.5 [facility] Comment on above: Performed By: #### C BC ####[facility] [address] [place] [address]Dr. Arslan Ma Neutrophils/100 WBC (Bld) 69.2 % Normal 43.0-75.0 [facility] Comment on above: Performed By: #### C BC ####[facility] [address] [place] [id number]. Arslan Ma Platelet mean volume (Bld) [Entitic vol] 9.3 fL Critically low 9.5-13.5 [facility] Comment on above: Performed By: #### C BC ####[facility] [address] [place] [id number]. Arslan Ma PLT 174 103/ul Normal 150-450 [facility] Comment on above: Performed By: #### C BC ####[facility] [address] [place] [id number]. Arslan Ma RBC 5.09 106/ul Normal 4.70-6.10 [facility] Comment on above: Performed By: #### C BC ####[facility] [address] [place] [address]Dr. Arslan Ma WBC 6.7 103/ul Normal 4.0-11.0 [facility] Comment on above: Performed By: #### C BC ####[facility] [address] [place] [id number]. Arslan Ma GLYCOHEMOGLOBIN A1Con 2022 ADA RECOMMENDATION SEE BELOW Normal [facility] Comment on above: Result Comment: ADA RECOMMENDED LIMIT 4.0 - 6.0 ADA THERAPEUTIC TARGET < 7.0 ACTION SUGGESTED > 7.0 Performed By: #### A 1C #### [facility] [address] [place] [address] Dr. Arslan Ma Glucose [Mass/Vol] 128 mg/dL Normal [facility] Comment on above: Performed By: #### A 1C #### [facility] [address] [place] [address] Dr. Arslan Ma HbA1c (Bld) [Mass fraction] 6.1 % Normal 4.5-6.2 [facility] Comment on above: Performed By: #### A 1C #### [facility] [address] [place] [address] Dr. Arslan Ma LIPID PROFILEon 11-26-2022 CHOL-HDL RATIO NORM SEE BELOW Normal [facility] Comment on above: Result Comment: 3.3 - 4.4 LOW RISK 4.4 - 7.1 AVERAGE RISK 7.1 - 11.0 MODERATE RISK >11.0 HIGH RISK Performed By: #### C MP, LIPID #### [facility] [address] [place] [address] Dr. Arslan Ma Cholesterol [Mass/Vol] 143 mg/dL Normal <=200 [facility] Comment on above: Performed By: #### C MP, LIPID #### [facility] [address] [place] [address] Dr. Arslan Ma Cholesterol in HDL [Mass/Vol] 43 mg/dL Normal 40-60 [facility] Comment on above: Performed By: #### C MP, LIPID #### [facility] [address] [place] [address] Dr. Arslan Ma Cholesterol in LDL [Mass/Vol] 78.4 mg/dL Normal [facility] Comment on above: Performed By: #### C MP, LIPID #### [facility] [address] [place] [address] Dr. Arslan Ma Cholesterol.total/ Cholesterol in HDL [Mass ratio] 3.3 {ratio} Normal [facility] Comment on above: Performed By: #### C MP, LIPID #### [facility] [address] [place], [place] [address] Dr. Arslan Ma HDL NORMAL > or = 60 mg/dl - LO W CARDIOVASCULAR RISK <40 mg/dl - HIGH CARDIOVASCULAR RISK Normal [facility] Comment on above: Performed By: #### C MP, LIPID #### [facility] [address] [place] [address] Dr. Arslan Ma LDL CALC NORMAL SEE BELOW Normal [facility] Comment on above: Result Comment: <100 mg/dl OPTIMAL 100 - 129 mg/dl NEAR OR ABOVE OPTIMAL 130 - 159 mg/dl BORDERLINE HIGH 160 - 189 mg/dl HIGH >190 mg/dl VERY HIGH Performed By: #### C MP, LIPID #### [facility] [address] [place] [address] Dr. Arslan Ma Triglyceride [Mass/Vol] 108 mg/dL Normal <=150 [facility] Comment on above: Performed By: #### C MP, LIPID #### [facility] [address] [place] [address] Dr. Arslan Ma VLDL CALC 21.6 mg/dL Normal [facility] Comment on above: Performed By: #### C MP, LIPID #### [facility] [address] [place] [address] Dr. Arslan Ma PROF 14(COMP METB)on 023 Albumin [Mass/Vol] 3.8 g/dL Normal 3.4-5.0 [facility] Comment on above: Performed By: #### C MP, LIPID #### [facility] [address] [place] [address] Dr. Arslan Ma Albumin/Globulin [Mass ratio] 1.1 {ratio} Normal [facility] Comment on above: Performed By: #### C MP, LIPID #### [facility] [address] [address] [address] Arslan Ma ALP [Catalytic activity/Vol] 72 U/L Normal 46-116 [facility] Comment on above: Performed By: #### C MP, LIPID #### [facility] [address] [place] [address] Dr. Arslan Ma ALT [Catalytic activity/Vol] 31 U/L Normal 16-63 [facility] Comment on above: Performed By: #### C MP, LIPID #### [facility] [address] [address] [address] Arslan Ma Anion gap [Moles/Vol] 14.9 mmol/L Normal [facility] Comment on above: Performed By: #### C MP, LIPID #### [facility] [address] [address] [address] Arslan Ma AST [Catalytic activity/Vol] 21 U/L Normal 15-37 [facility] Comment on above: Performed By: #### C MP, LIPID #### [facility] [address] [address] [address] Arslan Ma Bilirubin [Mass/Vol] 0.9 mg/dL Normal 0.2-1.0 [facility] Comment on above: Performed By: #### C MP, LIPID #### [facility] [address] [address] [address] Arslan Ma Calcium [Mass/Vol] 8.4 mg/dL Critically low 8.5-10.1 [facility] Comment on above: Performed By: #### C MP, LIPID #### [facility] [address] [address] [address] Arslan Ma Chloride [Moles/Vol] 102 mmol/L Normal 98-107 [facility] Comment on above: Performed By: #### C MP, LIPID #### [facility] [address] [address] [address] Arslan Ma CO2 [Moles/Vol] 28.7 mmol/L Normal 21.0-32.0 [facility] Comment on above: Performed By: #### C MP, LIPID #### [facility] [address] [address] [address] Arslan Ma Creatinine [Mass/Vol] 0.86 mg/dL Normal 0.70-1.30 [facility] Comment on above: Performed By: #### C MP, LIPID #### [facility] [address] [address] [address] Arslan Ma EGFR-AF SUDANESE >60 Normal >=60 [facility] Comment on above: Performed By: #### C MP, LIPID #### [facility] [address] [address] [address] Arslan Ma EGFR-NON AF SUDANESE >60 Normal >=60 [facility] Comment on above: Performed By: #### C MP, LIPID #### [facility] [address] [address] [address] Arslan Ma Globulin (S) [Mass/Vol] 3.5 g/dL Normal [facility] Comment on above: Performed By: #### C MP, LIPID #### [facility] [address] [address] [address] Arslan Ma Glucose [Mass/Vol] 127 mg/dL Critically high 74-106 [facility] Comment on above: Performed By: #### C MP, LIPID #### [facility] [address] [address] [address] Arslan Ma Potassium [Moles/Vol] 3.6 mmol/L Normal 3.5-5.1 [facility] Comment on above: Performed By: #### C MP, LIPID #### [facility] [address] [address] [address] Arslan Ma Protein [Mass/Vol] 7.3 g/dL Normal 6.4-8.2 [facility] Comment on above: Performed By: #### C MP, LIPID #### [facility] [address] [address] [address] Arslan Ma Sodium [Moles/Vol] 142 mmol/L Normal 136-145 [facility] Comment on above: Performed By: #### C MP, LIPID #### [facility] [address] [address] [address] Arslan Ma Urea nitrogen [Mass/Vol] 13.0 mg/dL Normal 7.0-18.0 [facility] Comment on above: Performed By: #### C MP, LIPID #### [facility] [address] [address] [address] Arslan Ma Urea nitrogen/Creatinin e [Mass ratio] 15.1 mg/mg Normal [facility] Comment on above: Performed By: #### C MP, LIPID #### [facility] [address] [address] [address] Arslan Ma CBC AUTO DIFFon 05-20-2022 BASO # 0.1 103/ul Normal 0.0-0.1 [facility] Comment on above: Performed By: #### C BC #### [facility] [address] [address] [address] Arslan Ma Basophils/100 WBC (Bld) 0.8 % Normal 0.2-2.0 [facility] Comment on above: Performed By: #### C BC #### [facility] [address] [place] [address] Dr. Arslan Ma EO # 0.4 103/ul Normal 0.0-0.7 [facility] Comment on above: Performed By: #### C BC #### [facility] [address] [place] [address] Dr. Arslan Ma Eosinophils/100 WBC (Bld) 5.8 % Normal 0.9-7.0 [facility] Comment on above: Performed By: #### C BC #### [facility] [address] [place] [address] Dr. Arslan Ma Erythrocyte distribution width (RBC) [Ratio] 13.3 % Normal 11.0-15.0 [facility] Comment on above: Performed By: #### C BC #### [facility] [address] [place] [address] Dr. Arslan Ma Hematocrit (Bld) [Volume fraction] 36.2 % Critically low 42.0-54.0 [facility] Comment on above: Performed By: #### C BC #### [facility] [address] [place] [address] Dr. Arslan Ma Hemoglobin (Bld) [Mass/Vol] 12.1 g/dL Critically low 14.0-18.0 [facility] Comment on above: Performed By: #### C BC #### [facility] [address] [place] [address] Dr. Arslan Ma IG # 0.04 10e3/ul Critically high 0.00-0.03 [facility] Comment on above: Performed By: #### C BC #### [facility] [address] [place] [address] Dr. Arslan Ma IG % 0.6 % Critically high 0.0-0.5 [facility] Comment on above: Performed By: #### C BC #### [facility] [address] [place] [address] Dr. Arslan Ma LYMPH # 1.3 103/ul Normal 1.2-3.8 [facility] Comment on above: Performed By: #### C BC #### [facility] [address] [place] [address] Dr. Arslan Ma Lymphocytes/100 WBC (Bld) 20.3 % Critically low 20.5-60.0 [facility] Comment on above: Performed By: #### C BC #### [facility] [address] [place] [address] Dr. Arslan Ma MANUAL DIFF REQ NO Normal [facility] Comment on above: Performed By: #### C BC #### [facility] [address] [place] [address] Dr. Arslan Ma MCH (RBC) [Entitic mass] 28.1 pg Normal 25.9-34.0 [facility] Comment on above: Performed By: #### C BC #### [facility] [address] [place] [address] Dr. Arslan Ma MCHC (RBC) [Mass/Vol] 33.4 g/dL Normal 29.9-35.2 [facility] Comment on above: Performed By: #### C BC #### [facility] [address] [place] [address] Dr. Arslan Ma MCV (RBC) [Entitic vol] 84.2 fL Normal 80.0-94.0 [facility] Comment on above: Performed By: #### C BC #### [facility] [address] [place] [address] Dr. Arslan Ma MONO # 0.6 103/ul Normal 0.3-0.8 [facility] Comment on above: Performed By: #### C BC #### [facility] [address] [place] [address] Dr. Arslan Ma Monocytes/100 WBC (Bld) 8.9 % Normal 1.7-12.0 [facility] Comment on above: Performed By: #### C BC #### [facility] [address] [place] [address] Dr. Arslan Ma NEUT # 4.2 103/ul Normal 1.4-6.5 [facility] Comment on above: Performed By: #### C BC #### [facility] [address] [place] [address] Dr. Arslan Ma Neutrophils/100 WBC (Bld) 63.6 % Normal 43.0-75.0 [facility] Comment on above: Performed By: #### C BC #### [facility] [address] [place] [address] Dr. Arslan Ma Platelet mean volume (Bld) [Entitic vol] 9.3 fL Critically low 9.5-13.5 [facility] Comment on above: Performed By: #### C BC #### [facility] [address] [place] [address] Dr. Arslan Ma PLT 154 103/ul Normal 150-450 [facility] Comment on above: Performed By: #### C BC #### [facility] [address] [place] [address] Dr. Arslan Ma RBC 4.30 106/ul Critically low 4.70-6.10 [facility] Comment on above: Performed By: #### C BC #### [facility] [address] [place] [address] Dr. Arslan Ma WBC 6.6 103/ul Normal 4.0-11.0 [facility] Comment on above: Performed By: #### C BC #### [facility] [address] [place] [address] Dr. Arslan Ma PROF CHEM 8 (BAS METB)on Anion gap [Moles/Vol] 10.3 mmol/L Normal [facility] Comment on above: Performed By: #### B MP, TSH, ALT ####[facility] [address] [place] [id number]. Arslan Ma Calcium [Mass/Vol] 8.3 mg/dL Critically low 8.5-10.1 [facility] Comment on above: Performed By: #### B MP, TSH, ALT ####[facility] [address] [place] [id number]. Arslan Ma Chloride [Moles/Vol] 103 mmol/L Normal 98-107 [facility] Comment on above: Performed By: #### B MP, TSH, ALT ####[facility] [address] [place] [address]Dr. Arslan Ma CO2 [Moles/Vol] 28.0 mmol/L Normal 21.0-32.0 [facility] Comment on above: Performed By: #### B MP, TSH, ALT ####[facility] [address] [place] [address]Dr. Arslan Ma Creatinine [Mass/Vol] 1.05 mg/dL Normal 0.70-1.30 [facility] Comment on above: Performed By: #### B MP, TSH, ALT ####[facility] [address] [place] [address]Dr. Arslan Ma EGFR-AF SUDANESE >60 Normal >=60 [facility] Comment on above: Performed By: #### B MP, TSH, ALT ####[facility] [address] [place] [address]Dr. Arslan Ma EGFR-NON AF SUDANESE >60 Normal >=60 [facility] Comment on above: Performed By: #### B MP, TSH, ALT ####[facility] [address] [place] [id number]. Arslan Ma Glucose [Mass/Vol] 110 mg/dL Critically high 74-106 [facility] Comment on above: Performed By: #### B MP, TSH, ALT ####[facility] [address] [place] [id number]. Arslan Ma Potassium [Moles/Vol] 3.3 mmol/L Critically low 3.5-5.1 [facility] Comment on above: Performed By: #### B MP, TSH, ALT ####[facility] [address] [place] [address]Dr. Arslan Ma Sodium [Moles/Vol] 138 mmol/L Normal 136-145 [facility] Comment on above: Performed By: #### B MP, TSH, ALT ####[facility] [address] [place] [address]Dr. Arslan Ma Urea nitrogen [Mass/Vol] 17.0 mg/dL Normal 7.0-18.0 [facility] Comment on above: Performed By: #### B MP, TSH, ALT ####[facility] [address] [place] [address]Dr. Arslan Ma Urea nitrogen/Creatinin e [Mass ratio] 16.2 mg/mg Normal [facility] Comment on above: Performed By: #### B MP, TSH, ALT ####[facility] [address] [place], [place] [address]Dr. Arslan Ma SGPTon 05-20-2022 ALT [Catalytic activity/Vol] 29 U/L Normal 16-63 [facility] Comment on above: Performed By: #### B MP, TSH, ALT #### [facility] [address] [place] [address] Dr. Arslan Ma TSHon 05-20-2022 TSH 0.964 uIU/mL Normal 0.358-3.740 [facility] Comment on above: Performed By: #### B MP, TSH, ALT ####[facility] [address] [place], [place] [address]Dr. Arslan Ma CBC AUTO DIFFon 01-14-2022 BASO # 0.1 103/ul Normal 0.0-0.1 [facility] Comment on above: Performed By: #### C BC #### [facility] [address] [place] [address] Dr. Arslan Ma Basophils/100 WBC (Bld) 0.8 % Normal 0.2-2.0 [facility] Comment on above: Performed By: #### C BC #### [facility] [address] [place] [address] Dr. Arslan Ma EO # 0.3 103/ul Normal 0.0-0.7 [facility] Comment on above: Performed By: #### C BC #### [facility] [address] [place] [address] Dr. Arslan Ma Eosinophils/100 WBC (Bld) 4.4 % Normal 0.9-7.0 [facility] Comment on above: Performed By: #### C BC #### [facility] [address] [place] [address] Dr. Arslan Ma Erythrocyte distribution width (RBC) [Ratio] 13.4 % Normal 11.0-15.0 [facility] Comment on above: Performed By: #### C BC #### [facility] [address] [place] [address] Dr. Arslan Ma Hematocrit (Bld) [Volume fraction] 42.3 % Normal 42.0-54.0 [facility] Comment on above: Performed By: #### C BC #### [facility] [address] [place] [address] Dr. Arslan Ma Hemoglobin (Bld) [Mass/Vol] 13.6 g/dL Critically low 14.0-18.0 [facility] Comment on above: Performed By: #### C BC #### [facility] [address] [place] [address] Dr. Arslan Ma IG # 0.05 10e3/ul Critically high 0.00-0.03 [facility] Comment on above: Performed By: #### C BC #### [facility] [address] [place] [address] Dr. Arslan Ma IG % 0.8 % Critically high 0.0-0.5 [facility] Comment on above: Performed By: #### C BC #### [facility] [address] [place] [address] Dr. Arslan Ma LYMPH # 1.2 103/ul Normal 1.2-3.8 [facility] Comment on above: Performed By: #### C BC #### [facility] [address] [place] [address] Dr. Arslan Ma Lymphocytes/100 WBC (Bld) 18.2 % Critically low 20.5-60.0 [facility] Comment on above: Performed By: #### C BC #### [facility] [address] [place] [address] Dr. Arslan Ma MANUAL DIFF REQ NO Normal [facility] Comment on above: Performed By: #### C BC #### [facility] [address] [place] [address] Dr. Arslan Ma MCH (RBC) [Entitic mass] 27.1 pg Normal 25.9-34.0 [facility] Comment on above: Performed By: #### C BC #### [facility] [address] [place] [address] Dr. Arslan Ma MCHC (RBC) [Mass/Vol] 32.2 g/dL Normal 29.9-35.2 [facility] Comment on above: Performed By: #### C BC #### [facility] [address] [place] [address] Dr. Arslan Ma MCV (RBC) [Entitic vol] 84.4 fL Normal 80.0-94.0 [facility] Comment on above: Performed By: #### C BC #### [facility] [address] [place] [address] Dr. Arslan Ma MONO # 0.5 103/ul Normal 0.3-0.8 [facility] Comment on above: Performed By: #### C BC #### [facility] [address] [place] [address] Dr. Arslan Ma Monocytes/100 WBC (Bld) 7.5 % Normal 1.7-12.0 [facility] Comment on above: Performed By: #### C BC #### [facility] [address] [place] [address] Dr. Arslan Ma NEUT # 4.5 103/ul Normal 1.4-6.5 [facility] Comment on above: Performed By: #### C BC #### [facility] [address] [address] [address] Arslan Ma Neutrophils/100 WBC (Bld) 68.3 % Normal 43.0-75.0 [facility] Comment on above: Performed By: #### C BC #### [facility] [address] [address] [address] Arslan Ma Platelet mean volume (Bld) [Entitic vol] 9.3 fL Critically low 9.5-13.5 [facility] Comment on above: Performed By: #### C BC #### [facility] [address] [place] [address] [address] Arslan Ma PLT 154 103/ul Normal 150-450 [facility] Comment on above: Performed By: #### C BC #### [facility] [address] [place] [address] Dr. Arslan Ma RBC 5.01 106/ul Normal 4.70-6.10 [facility] Comment on above: Performed By: #### C BC #### [facility] [address] [address] [address] Arslan Ma WBC 6.6 103/ul Normal 4.0-11.0 [facility] Comment on above: Performed By: #### C BC #### [facility] [address] [address] [address] Arslan Ma FERRITINon 01-14-2022 Ferritin [Mass/Vol] 77.0 ng/mL Normal 17.9-464.0 [facility] Comment on above: Performed By: #### V ITB12, FERR ####[facility] [address] [place] [address]Dr. Arslan Ma GLYCOHEMOGLOBIN A1Con 2021 ADA RECOMMENDATION ADA THERAPEUTIC TARG ET 6.0 - 7.0 ACTION SUGGESTED > 7.0 Normal [facility] Comment on above: Performed By: #### A 1C #### [facility] [address] [address] [address] Arslan Ma Glucose [Mass/Vol] 103 mg/dL Normal [facility] Comment on above: Performed By: #### A 1C #### [facility] [address] [place], [place] [address] Dr. Arslan Ma HbA1c (Bld) [Mass fraction] 5.2 % Normal <=6.0 [facility] Comment on above: Performed By: #### A 1C #### [facility] [address] [place], [place] [address] Dr. Arslan Ma VITAMIN B12on 01-14-2022 Cobalamin (Vitamin B12) [Mass/Vol] 688.0 pg/mL Normal 239.0-931.0 [facility] Comment on above: Performed By: #### V ITB12, FERR ####[facility] [address] [place], [place] [address]CyDr. Arslan Ma COVID-19 Positive/Negativeon 11-13-2020 COVID-19 Positive/Negative Negative Negative [facility] Comment on above: Testing for SARS-CoV -2 by RT-PCRThis test was developed and its performance characteristics determined by [employer] and validated at the [facility]. This test has not been FDA cleared [...] Otheron 11-13-2020 Coronavirus 2019 PCR Interp N/A [facility] Vital Signs Date Time Vital Sign Value Performing Clinician Facility 11-25-2024 15:36-0500 Body height 176.53 cm [facility] 11-25-2024 15:36-0500 Body mass index (BMI) [Ratio] 39.6 kg/m2 [facility] 11-25-2024 15:36-0500 Body weight 123.43 kg [facility] 11-25-2024 15:36-0500 Diastolic blood pressure 75 mm[Hg] [facility] 11-25-2024 15:36-0500 Heart rate 60 /min [facility] 11-25-2024 15:36-0500 Respiratory rate 12 /min [facility] 11-25-2024 15:36-0500 Systolic blood pressure 139 mm[Hg] [facility] 11-27-2023 08:30-0500 Body height 176.53 cm Pascual Ball Other [facility] Other 11-27-2023 08:30-0500 Body mass index (BMI) [Ratio] 38.13 kg/m2 Pascual Ball Other [facility] Other 11-27-2023 08:30-0500 Body weight 118.84 kg Pascual Ball Other [facility] Other 11-27-2023 08:30-0500 Diastolic blood pressure 76 mm[Hg] Pascual Ball Other [facility] Other 11-27-2023 08:30-0500 Respiratory rate 16 /min Pascual Ball Other [facility] Other 11-27-2023 08:30-0500 Systolic blood pressure 131 mm[Hg] Pascual Ball Other [facility] Other 11-02-2023 14:30-0500 Body height 176.53 cm Pascual Ball Other [facility] Other 11-02-2023 14:30-0500 Body mass index (BMI) [Ratio] 38.63 kg/m2 Pascual Ball Other [facility] Other 11-02-2023 14:30-0500 Body weight 120.39 kg Pascual Ball Other [facility] Other 11-02-2023 14:30-0500 Diastolic blood pressure 63 mm[Hg] Pascual Ball Other [facility] Other 11-02-2023 14:30-0500 Respiratory rate 12 /min Pascual Ball Other [facility] Other 11-02-2023 14:30-0500 Systolic blood pressure 117 mm[Hg] Pascual Ball Other [facility] Other 07-25-2023 15:30-0400 Body height 176.53 cm Pascual Ball Other [facility] Other 07-25-2023 15:30-0400 Body mass index (BMI) [Ratio] 38.48 kg/m2 Pascual Ball Other [facility] Other 07-25-2023 15:30-0400 Body weight 119.93 kg Pascual Ball Other [facility] Other 07-25-2023 15:30-0400 Diastolic blood pressure 78 mm[Hg] Pascual Ball Other [facility] Other 07-25-2023 15:30-0400 Respiratory rate 12 /min Pascual Ball Other [facility] Other 07-25-2023 15:30-0400 Systolic blood pressure 125 mm[Hg] Pascual Ball Other [facility] Other 04-05-2023 15:44-0400 Blood Pressure Location [facility] DOD[facility] [place] 04-05-2023 15:44-0400 Diastolic blood pressure 82 mm[Hg] [facility] PRADOL [facility] [place] 04-05-2023 15:44-0400 Heart rate 68 /min Toro PRADOL [facility] [place] 04-05-2023 15:44-0400 Respiratory rate 16 /min Toro PRADOL [facility] [place] 04-05-2023 15:44-0400 Systolic blood pressure 142 mm[Hg] Toro PRADOL [facility] [place] 11-21-2022 10:00-0500 Body height 176.53 cm Pascual Ball Other [facility] Other 11-21-2022 10:00-0500 Body mass index (BMI) [Ratio] 38.02 kg/m2 Pascual Ball Other [facility] Other 11-21-2022 10:00-0500 Body weight 118.48 kg Pascual Ball Other [facility] Other 11-21-2022 10:00-0500 Diastolic blood pressure 82 mm[Hg] Pascual Ball Other [facility] Other 11-21-2022 10:00-0500 Respiratory rate 12 /min Pascual Ball Other [facility] Other 11-21-2022 10:00-0500 Systolic blood pressure 136 mm[Hg] Pascual Ball Other [facility] Other 07-03-2022 14:20-0400 Body height 176.53 cm Melissa Richter Other [facility] Other 07-03-2022 14:20-0400 Body mass index (BMI) [Ratio] 36.59 kg/m2 Melissa Richter Other [facility] Other 07-03-2022 14:20-0400 Body temperature 98.7 [degF] Melissa Richter Other [facility] Other 07-03-2022 14:20-0400 Body weight 114.04 kg Melissa Richter Other [facility] Other 07-03-2022 14:20-0400 Diastolic blood pressure 76 mm[Hg] Melissa Richter Other [facility] Other 07-03-2022 14:20-0400 SaO2% (BldA) [Mass fraction] 96 % Melissa Richter Other [facility] Other 07-03-2022 14:20-0400 Systolic blood pressure 128 mm[Hg] Melissa Richter Other [facility] Other Encounters Encounter Date Encounter Type Care Provider Facility Start: 11-25-2024 End: 11-25-2024 ambulatory [facility] Work Phone: Start: 11-25-2024 End: 11-25-2024 Encounter for general adult medical examination without abnormal findings [facility] Start: 11-25-2024 End: 11-25-2024 Patient encounter procedure [facility] Work Phone: Start: 11-21-2024 Patient encounter status [facility] Start: 12-04-2023 End: 12-04-2023 ambulatory Pascual Ordaz Other [facility] Other Start: 12-04-2023 Telephone encounter Pascual Ordaz [facility] Start: 11-27-2023 End: 11-27-2023 ambulatory Pascual Ordaz Other [facility] Other Start: 11-27-2023 Encounter for genera l adult medical examination without abnormal findings Pascual Ordaz [facility] Start: 11-27-2023 Periodic preventive med est patient 40-64yrs Pascual Ordaz [facility] Start: 11-27-2023 Telephone encounter Pascual Ordaz [facility] Start: 11-02-2023 End: 11-02-2023 ambulatory Pascual Ordaz Other [facility] Other Start: 11-02-2023 Office outpatient vi sit 25 minutes Pascual Ordaz [facility] Start: 10-25-2023 End: 10-25-2023 ambulatory Pascual Ordaz Other [facility] Other Start: 10-25-2023 Telephone encounter Pascual MATA G [facility] Start: 10-23-2023 End: 10-23-2023 ambulatory Pascual Ordaz Other [facility] Other Start: 10-23-2023 Telephone encounter Pascual MATA G [facility] Start: 07-25-2023 End: 07-25-2023 ambulatory Pascual Ordaz Other [facility] Other Start: 07-25-2023 Office outpatient vi sit 25 minutes Pascual Ordaz [facility] Start: 05-30-2023 End: 05-31-2023 ambulatory Toro DODGE Facility:[facility] Roy Start: 05-24-2023 End: 05-24-2023 ambulatory Pascual Ordaz Other [facility] Other Start: 05-24-2023 Telephone encounter Pascual Ordaz FP [facility] Start: 05-17-2023 End: 05-18-2023 ambulatory Toro DODGE Facility:CD:[id number] Start: 04-05-2023 End: 04-06-2023 ambulatory Toro Kirby NILL Facility:[facility] Roy Start: 04-05-2023 End: 04-05-2023 Patient encounter procedure Toro DODGE [facility]/Phil Roy Start: 03-31-2023 ambulatory Toro ECHO Facility:Nancy Roy Start: 03-22-2023 ambulatory Toro Mirta DODGE Facility :SANAM Rai Start: 12-27-2022 End: 12-27-2022 ambulatory Pascual Ordaz Other [facility] Other Start: 12-27-2022 Telephone encounter Pascual Ordaz [facility] Start: 12-26-2022 End: 12-27-[address] PASCUAL ORDAZ Facility:[facility] Start: 11-30-2022 Encounter for genera l adult medical examination without abnormal findings DR PASCUAL ORDAZ [facility] Start: 11-26-2022 End: 11-27-[address] PASCUAL ORDAZ Facility:[facility] Start: 11-26-2022 End: 11-27-2022 Encounter for general adult medical examination without abnormal findings DR PASCUAL ORDAZ Facility:[facility] Start: 11-21-2022 End: 11-21-2022 ambulatory Pascual Ordaz Other [facility] Other Start: 11-21-2022 Patient encounter procedure Pascual Ordaz [facility] Start: 11-21-2022 Periodic preventive med est patient 40-64yrs Pascual Ordaz [facility] Start: 07-12-2022 End: 07-13-2022 ambulatory LAMBERTO JOHNSON Facility:[facility] Start: 07-03-2022 End: 07-03-2022 ambulatory Melissa Richter Other [facility] Other Start: 07-03-2022 Office outpatient vi sit 15 minutes Melissa Richter [facility] Start: 06-15-[address] [...] Detail Performing Clinician Start: 11-26-2022 PSA screening LAMBERTO JOHNSON Comment on above: Performed By: #### [facility] #### [facility] [address] [address] [address] Arslan Ma Start: 11-16-2020 Esophagogastroduodenoscopy Toro NILL Start: 04-06-2019 Colonoscopy Toro NI LL Start: 11-06-2014 Nasal septoplasty [place] N[place] Arthroscopy of knee Toro NILL Depression screening Prema Ordaz Other Excision of lipoma Toro PEARSON Comment on above: neck Metatarsophalangeal fusion M ichael NILL Plan of Treatment Date Care Activity Detail Author Comprehensive metabo lic 2000 panel - Serum or Plasma [facility] enter CT of chest [facility] Immunizations Immunization Date Immunization Notes Care Provider Fa rochelle 03-22-2021 SARS-CoV-2 (COVID-19 ) mRNA BNT-162b2 vax Toro NILL [facility] [place] 03-01-2021 SARS-CoV-2 (COVID-19 ) mRNA BNT-162b2 vax Toro NILL [facility] 07-21-2015 diphtheria, tetanus toxoids and acellular pertussis vaccine, unspecified formulation Pascual Ordaz Other [facility] Payers Date Payer Category Payer Unknown [id number] [id number] [id number] 1965 Unknown [id number] [id number] [id number] 1965 Unknown [id number] [id number] [id number] 1965 Unknown [id number] [id number] 1965 Unknown [id number] 2.16.84 [id number] 1965 Unknown [id number] 2.16.84 [id number] 1965 Unknown [id number] 2.16.84 [id number] 1965 Unknown [id number] 2.16.84 [id number] 1965 Unknown [id number] 2.16.8 40.1.362478.3.579.2.727 1965 Unknown [id number] 2.16.8 40.1.957861.3.579.2.727 1965 Unknown [id number] 2.16.8 40.1.814654.3.579.2.727 1965 Unknown [id number] 2.16.8 40.1.104842.3.579.2.727 1961 Unknown [id number] 1961 Unknown [id number] Self-pay Self Pay [id number] Social History Date Type Detail Facility Start: 11-13-2020 End: 11-27-2023 Tobacco smoking status NCIS Never smoked tobacco (finding) [facility] [place] Start: 1965 Sex Assigned At Male [facility] Sex Assigned At [facility] Tobacco smoking status Never [facility] Start: 11-25-2024 Sex Male (finding) [facility] Goals Date Patient Goal Desired Activity /State Functional Status Date Assessment Result Facility 04-05-2023 Functional Status N/A [facility] Clinical Notes 08-06-2021 to 11-27-2023 Note Date & Type Note Facility 11-27-2023 Evaluation note Encounter Date Diagnosis Assessment Notes Nov, Primary hypertension (ICD-10 - I10) ECHO: 10/2023 - Moderate concentric LVH w/ LVEF 55 to 60%. - Normal right ventricular size, systolic function and RVSP - dilated aortic root [4.2 cm], and ascending aorta [4.1 cm) This patient is instructed to consume a healthy, low-fat, low-salt diet. They are also encouraged to continue exercise to achieve/maintain a normal BMI. Patient is instructed on home BP measurements: - rest for 5 minutes w/o talking.- positioned w/ feet on floor and arm supported.- average best 2/3 readings w/ goal < 135/85.- update office w/ home readings in 2 weeks. Nov, Wellness examination (ICD-10 - Z00.00) Healthy diet and exercise. Reviewed age-appropriate preventive testing recommended. Nov, Impaired fasting glucose (ICD-10 - R73.01) Healthy diet and exercise. Weight loss stressed. Monitor FBS and A1C - FBS consistently < 140 - A1C goal is < 7% Nov, Obstructive sleep apnea (adult) (pediatric) (ICD-10 - G47.33) This patient is aware of the benefits associated with ILEANA: With continued use, the patient reduces the risk for [place], CVA, HTN, cardiac dysrhythmias and sudden cardiac deaths.The patient is also aware of the association between ILEANA and morning headaches, daytime somnolence, fatigue and obesity, which also has been improved with continued use.The patient is compliant with treatment, wearing the equipment every night for greater than 4 hours.The patient is instructed to continue use of the CPAP for ILEANA treatment. Nov, Ascending aorta dilatation (ICD-10 - I77.810) ECHO: 10/2023 - Moderate concentric LVH w/ LVEF 55 to 60%. - Normal right ventricular size, systolic function and RVSP - dilated aortic root [4.2 cm], and ascending aorta [4.1 cm) Reviewed Echocardiogram - aorta 4.1cm - continue treatment of HTN, goal < 140/90 - encouraged exercise and weight loss Nov, LAQUITA (generalized anxiety disorder) (ICD-10 - F41.1) Much improved w/ job changes Encouraged to exercise, consistent sleep routine. Declines medical treatment or counseling Nov, Morbid (severe) obesity due to excess calories (ICD-10 - E66.01) This patient has been instructed on a low-fat, high-fiber diet. They are instructed to reduce calories, portion sizes and snacks. It is recommended that they exercise for 30 minutes, 3-5 times weekly. Nov, Body mass index [BMI] 38.0-38.9, adult (ICD-10 - Z68.38) Nov, Venous insufficiency (chronic) (peripheral) (ICD-10 - I87.2) Avoid salt and elevate lower extremities, support stockings, inspect legs and feet daily for blisters and ulcerations. Nov, Gastro-esophage al reflux disease with esophagitis, without bleeding (ICD-10 - K21.00) Avoid lying flat after eating. Avoid eating 2 hours prior to bedtime. Smaller, frequent meals may be better tolerated.Weight loss if overweight.PPI with any heartburn.Monito r for dysphagia. Nov, Screening PSA (prostate specific antigen) (ICD-10 - Z12.5) Yearly XIMENA and PSA Nov, Colon cancer screening (ICD-10 - Z12.11) Denies change in bowel habits. Denies N/V, dysphagia, abdominal pain, melena or hematochezia Hx of polypectomy Refer for screening colonoscopy Ahaali Other 12-28-2023 Evaluation note* Encounter Date Diagnosis Assessment Notes Treatment Notes Treatment Clinical Notes Oct, Primary hypertension (ICD-10 - I10) Echo: LVEF 55%, RVSP 28, RV normal size/function This patient is instructed to consume a [...] use, the patient reduces the risk for KY, CVA, HTN, cardiac dysrhythmias and sudden cardiac [...] feet daily for blisters and ulcerations. Oct, Gastro-esophageal reflux disease with esophagitis, without bleeding (ICD-10 - K21.00) Avoid lying flat after eating. Avoid eating 2 hours prior to bedtime. Smaller, frequent meals may be better tolerated.Weight loss if overweight.PPI with any heartburn.Monitor for dysphagia. Oct, Migratory pain (ICD-10 - R52) Unsure of etiology. Cardiac evaluation during hospital stay. Monitor for now but may be stress related Call w/ any questions Ahaali Other 12-20-2023 Evaluation note* Encounter Date Diagnosis Assessment Notes Treatment Notes Treatment Clinical Notes Oct, Primary hypertension (ICD-10 - I10) Echo: 10/2023 - LVEF is 55 to 60%. - Normal right ventricular size, systolic function and RVSP. - Mildly to moderately dilated aortic root [4.2 cm], and ascending aorta [4.1 cm]. Ahaali Other 09-19-2023 Evaluation note* Encounter Date Diagnosis [...] use, the patient reduces the risk for KY, CVA, HTN, cardiac dysrhythmias and sudden cardiac [...] Hypokalemia (ICD-10 - E87.6) Continue potassium replacement Ahaali Other 05-31-2023 NoteChief Complaint consultation for back [...] plan excisional biopsy under local anesthesia at [facility] for definitive diagnosis and treatment; informed [...] Recorded SARS-CoV-2 (COVID-19) mRNA BNT-162b2 vax 03/01/2021 RecordedLima City HospitalComment on above:Result Comment: Electronically Signed By: ECHO CHAPA, Toro Angel\Date and Time Signed: 04/05/23 16:19 [id number] Evaluation note * Encounter Date Diagnosis Assessment Notes Treatment Notes Treatment Clinical Notes Dec, ILEANA (obstructive sleep apnea) (ICD-10 - G47.33) BiPAP 21/09, full facial mask Ahaali Other 01-16-2023 Evaluation note* Encounter Date Diagnosis [...] use, the patient reduces the risk for KY, CVA, HTN, cardiac dysrhythmias and sudden cardiac [...] and exercise. Reviewed age-appropriate preventive testing recommended. Ahaali Other 09-07-2022 NotePROCEDURE: XR FOOT RT MIN [...] Electronically authenticated by: ALEXANDER STEARNS Date: 2022-07-13 06:50[facility]08-28-2022 Evaluation note* Encounter Date Diagnosis Assessment Notes [...] if no improvement of symptoms with treatment Ahaali Other [id number] NotePROCEDURE: XR FOOT RT MIN 3 VIEWS [...] Electronically authenticated by: ALEXANDER STEARNS Date: 2022-01-11 15:52[facility]10-01-2021 History general Narrative - Reported* Type Description Date Medical History hypertension Medical History arthritis Surgical History neck surgery to remove fatty tu mor Surgical History left knee surgery Surgical History nose surgery Surgical History RT great toe 08/2021 Hospitalization History see above Ahaali Other Evaluation + Plan note No data available for this section [facility] [place] Evaluation noteNo InformationNort [facility] Other Evaluation note* Diagnosis Onset Date Resolution Status Admit Date Ascending aortic aneurysm acute November 25, 2024 3:29pm Chronic venous insufficiency of lower extremity acute November 25 3:29pm Hypertension acute November 3:29pm Obesity acute November 25, 2024 3:29pm ILEAAN (obstructive sleep apnea) acute November 25, 2024 3:29pm Screening for colon cancer acute November 25, 2024 3:29pm Screening PSA (prostate specific antigen) acute November 25, 2024 3:29pm Wellness examination acute 2024 3:29pm [facility] Work Phone: History general Narrative - Reported* Type Description [...] Septoplasty 10/2015 Hospitalization History see surgical history Ahaali Other History general Narrative - Reported* Type [...] k 05/2023 Hospitalization History see surgical history Ahaali Other Hospital Discharge instructions No data available for this section [facility] [place] Progress note No data available for this section [facility] Advance Directives Advance Directive Response Recorded Date/ Time Advance Directives No April 25 12:34pm Chief Complaint and Reason for Visit Chief Complaint Anemia/Heartburn/Ind igestion Chief Complaint Admit Date Wellness November 25, 2024 3 :29pm Reason for Visit Admit Date Ascending aortic aneurysm November 25, 2024 3:29pm Chronic venous insufficiency of lower ex tremity November 25, 2024 3:29pm Hypertension November 25, 2024 3 :29pm Obesity November 25, 2024 3 :29pm ILEANA (obstructive sleep apnea) November 252024 3:29pm Screening for colon cancer November 25, 2024 3:29pm Screening PSA (prostate specific antigen ) November 25, 2024 3:29pm Wellness examination November 25, 2024 3:29pm Assessments No Assessments Information Available Family History Relationship Condition Age at Onset Recorded Date/T belen Not Specified Malignant neoplasm of breast Unknown grandparent Malignant neoplasm of colon Unknown father Malignant neoplasm Unknown Relationship Condition Age at Onset Recorded Date/T belen mother Malignant neoplasm of breast Unknown grandparent Malignant neoplasm of colon Unknown father Malignant neoplasm Unknown brother Hypertension Unknown father Diabetes mellitus Unknown Unknown Malignant neoplasm Unknown mother Hypertension Unknown sister Hypertension Unknown Asthma Unknown Summary Purpose Additional Source Comments REASON FOR VISIT (unrecogniz ed section and content) RIGHT EYE IRRITATION, RASHWE LLNESSNo InformationNo InformationNo InformationCheck upTh AfternoonNo InformationTBHWELLNESSNo InformationLab results (unrecognized sect ion and content) No Status Records FoundNo Status Records Found INFORMATION SOURCE (unrecogn ized section and content) DATE CREATED AUTHOR 12/31/2022 [facility] DATE CREATED AUTHOR AUTHOR'S ORGANIZ ATION 06/02/2023 [facility] Patient Care team informatio n (unrecognized section and content) Team Status: Active Member Role Status Dates Pascual Ordaz DO Primary Care Provider Active Team Status: Inactive Member Role Status Dates Pascual Ordaz DO Primary Care Provide r, Attending Provider Active Start: November 25, 2024 End: November 25, 2024 Goals (unrecognized section and content) Goals may be documented in a n alternate section FOR RECORDS PERTAINING TO PATIENTS WHO ARE [...] BE BASED ON THE PRIMARY CLINICAL RECORDS. [facility] [employer] [facility]. provides no warranty or guarantee of the accuracy or completeness of information in this document.
[2024-12-20 07:41] LABS: Basophils Absolute Auto 0.1 10^3/uL (0.0-0.1); Basophils Percent Auto 0.8 % (0.2-2.0); Eosinophils Absolute Auto 0.3 10^3/uL (0.0-0.7); Eosinophils Percent Auto 5.3 % (0.9-7.0); Hematocrit 39.5 % (42.0-54.0); Hemoglobin 13.6 g/dL (14.0-18.0); Immature Granulocytes Abs Auto 0.04 10^3/uL (0.00-0.03); Immature Granulocytes Pct Auto 0.6 % (0.0-0.5); Lymphocytes Absolute Auto 1.1 10^3/uL (1.2-3.8); Mean Corpuscular HGB Conc 34.4 g/dL (29.9-35.2); Mean Corpuscular Hemoglobin 28.2 pg (25.9-34.0); Mean Platelet Volume 8.9 fL (9.5-13.5); Monocytes Absolute Auto 0.5 10^3/uL (0.3-0.8); Monocytes Percent Auto 7.6 % (1.7-12.0); Neutrophils Absolute Auto 4.4 10^3/uL (1.4-6.5); Neutrophils Percent Auto 68.7 % (43.0-75.0); Platelet Count 152 10^3/uL (150-450); Red Blood Count 4.82 10^6/uL (4.70-6.10); Red Cell Distribution Width 13.1 % (11.0-15.0); White Blood Count 6.4 10^3/uL (4.0-11.0)
--- NOTE | 2024-12-20 07:41 | CT_ITS ---
[address] [address] Patient Name: SAMUEL BLANCHARD MRN: [id number] date: 1965 Sex: M Assigned Patient Location: LAB Current Patient Location: LAB Accession/Order Number: [id number] Exam Date: 12/20/2024 08:08 Report Date: 12/20/2024 08:58 At the request of: GRAHAM MULLIGAN Procedure: CT angio chest EXAMINATION: CT angio chest HISTORY: Ascending Aortic Aneurysm I71.21 COMPARISON: No relevant comparison available. TECHNIQUE: Multi-planar CT images were created with IV contrast. Axial, Coronal, and Sagittal images. Dose reduction techniques were achieved by using automated exposure control and/or adjustment of mA and/or kV according to patient size and/or use of iterative reconstruction technique. 3-D reconstruction was performed on a separate workstation. FINDINGS: VASCULATURE: No pulmonary embolism or abnormal opacity. LUNGS: No visible pulmonary disease. PLEURA: No mass, effusion, or pneumothorax. PATIENCE: No mass or adenopathy. MEDIASTINUM: No mass or adenopathy. CARDIAC: No enlargement, pericardial effusion, or pericardial thickening. AORTA: The greatest diameter is at the root of the aorta, 3.8 cm. CHEST WALL: No mass or axillary adenopathy. BONES: No bone lesion or fracture. LIMITED ABDOMEN: No suspicious findings. Limited images of the upper abdomen. OTHER: Negative. CT/CT angio chest IMPRESSION: 1. Ascending thoracic aorta is 3.8 cm in diameter and is within normal limits, but approaches the upper limits of normal. Electronically authenticated by: EGRRI WOODARD Date: 12/20/2024 08:58
[2024-12-20 07:57] LABS: Alanine Aminotransferase 42 U/L (16-63); Albumin Globulin Ratio 1.1; Albumin Level 3.7 g/dL (3.4-5.0); Alkaline Phosphatase 75 U/L (46-116); Anion Gap 12.1; Aspartate Amino Transferase 25 U/L (15-37); BUN Creatinine Ratio 14.9; Bilirubin Total 0.8 mg/dL (0.2-1.0); Calcium 8.6 mg/dL (8.5-10.1); Carbon Dioxide 28.5 mmol/L (21.0-32.0); Chloride 103 mmol/L (98-107); Estimated GFR (African America >60 (>=60 mL/min/1.73m^2); Estimated GFR (Non-African Ame >60 (>=60 mL/min/1.73m^2); Globulin 3.5 g/dL; Glucose 145 mg/dL (74-106); Potassium 3.6 mmol/L (3.5-5.1); Sodium 140 mmol/L (136-145); Total Protein 7.2 g/dL (6.4-8.2)
[2024-12-20 07:59] LABS: Chol HDL Ratio 3.2; Cholesterol 148 mg/dL (<=200); HDL Cholesterol 46 mg/dL (40-60); LDL Cholesterol Calculated 87.4 mg/dL; Triglycerides 73 mg/dL (<=150); VLDL CHOLESTEROL 14.6 mg/dL
[2024-12-20 08:54] LABS: Prostate Specific Antigen Scrn 2.06 ng/mL (<=4.00)
[2024-12-20 08:57] LABS: Estimated Average Glucose 134 mg/dL; Glycohemoglobin A1C 6.3 % (4.5-6.2)
== END 2024-12-20 07:30 | disposition home or self-care (01) ==
LOC: LAB 07:30
PROVIDERS: PCP Internal Medicine; Visit Provider Internal Medicine
DX: I71.21 Aneurysm of the ascending aorta, without rupture (principal)
CPT/HCPCS: 36415; 71275; 80053; 80061; 83036; 85025; G0103; Q9967